=== PATIENT | male | born 1985 | race Asian ===

== ENCOUNTER 2019-11-02 19:41 | Inpatient (IN) | payer OTHER ==
[~2019-11-02] VITALS: Ht 180.3 cm; Wt 109.2 kg
[2019-11-02] MEDS ORDERED: Morphine Sulfate 4mg/ml Inj (IV USE ONLY) IVP ONE ×2 (20:15→22:00)
[2019-11-02] MEDS ORDERED: Ketorolac 30mg Inj IV ONE (20:15)
[2019-11-02] MEDS ORDERED: Omnipaque-300 100ml vial INJ PRN (20:15)
[2019-11-02 20:27] LABS: HEMATOCRIT 49.8 % (42.0-52.0); HEMOGLOBIN 17.2 G/DL (14.2-18.0); MEAN CORPUSCULAR VOLUME 87 FL (80-99); PLATELET COUNT 262 K/UL (150-450); RED BLOOD COUNT 5.71 M/UL (4.70-6.10); RED CELL DISTRIBUTION WIDTH 11.7 % (11.6-14.8); WHITE BLOOD COUNT 15.5 K/UL (4.8-10.8)
[2019-11-02 20:28] LABS: APPEARANCE,URINE SLIGHTLY CLOUDY; BILIRUBIN, URINE NEGATIVE (NEGATIVE); GLUCOSE, URINE (UA) NEGATIVE (NEGATIVE); KETONES,URINE 3+ (NEGATIVE); LEUKOCYTE ESTERASE ,URINE NEGATIVE (NEGATIVE); NITRITE,URINE NEGATIVE (NEGATIVE); PH,URINE 6 (4.5-8.0); PROTEIN,URINE 2+ (NEGATIVE); UROBILINOGEN,URINE 1 MG/DL (0.0-1.0)
--- NOTE | 2019-11-02 20:30 | NUR ---
ED Nurse Note: Recieved pt from home, here with c/o right quadrant abdominal pain since 3 am, intermittently and increasing to level of 8/10 with nausea, no emesis, pt denies fevers, diarrhea or any other complaints, pt gowned, urine sample collected and placed on monitoirng, will resume care as ordered by .
[2019-11-02 20:31] LABS: COLOR,URINE YELLOW
[2019-11-02 20:55] LABS: ANION GAP 10 mmol/L (5-15); BLOOD UREA NITROGEN 17 mg/dL (7-18); CALCIUM 8.4 MG/DL (8.5-10.1); CARBON DIOXIDE 28 MMOL/L (21-32); CHLORIDE 103 MMOL/L (98-107); CREATININE 1.2 MG/DL (0.55-1.30); POTASSIUM 3.3 MMOL/L (3.5-5.1); SODIUM 141 MMOL/L (136-145)
[2019-11-02 21:00] LABS: ALANINE AMINOTRANSFERASE 64 U/L (12-78); ALBUMIN 4.1 G/DL (3.4-5.0); ALBUMIN/GLOBULIN RATIO 1.1 (1.0-2.7); ALKALINE PHOSPHATASE 93 U/L (46-116); ASPARTATE AMINO TRANSFERASE 19 U/L (15-37); BILIRUBIN,TOTAL 0.6 MG/DL (0.2-1.0)
--- NOTE | 2019-11-02 21:05 | Emergency Room Report ---
History of Present Illness General Chief Complaint: Abdominal Pain Source: Patient Present Illness HPI 34-year-old male presents ED for evaluation. Complaining of abdominal pain. Started this morning around 3 AM. Woke him up from sleep. Pain is sharp, 8 out of 10, localized to right lower quadrant. Notes nausea, denies vomiting. Denies fevers or chills. Denies diarrhea. No other aggravating relieving factors. Denies any other associated symptoms Allergies: Coded Allergies: No Known Allergies (Unverified , 11/02/19) Patient History Past Medical History: none Past Surgical History: none Pertinent Family History: none Social History: Denies: smoking, alcohol use, drug use Immunizations: UTD Reviewed Nursing Documentation: PMH: Agreed; PSxH: Agreed Nursing Documentation-PMH Past Medical History: No Stated History Review of Systems All Other Systems: negative except mentioned in HPI Physical Exam Vital Signs Date Time Temp Pulse Resp B/P (MAP) Pulse Ox O2 Delivery O2 Flow Rate FiO2 11/02/19 19:49 98.8 110 16 151/96 (114) 96 Room Air Sp02 EP Interpretation: reviewed, normal General Appearance: no apparent distress, alert, GCS 15, non-toxic Head: normocephalic, atraumatic Eyes: bilateral eye normal inspection, bilateral eye PERRL ENT: hearing grossly normal, normal pharynx, no angioedema, normal voice Neck: full range of motion, supple/symm/no masses Respiratory: chest non-tender, lungs clear, normal breath sounds, speaking full sentences Cardiovascular #1: regular rate, rhythm, no edema Cardiovascular #2: 2+ carotid (R), 2+ carotid (L), 2+ radial (R), 2+ radial (L) , 2+ dorsalis pedis (R), 2+ dorsalis pedis (L) Gastrointestinal: normal bowel sounds, soft, non-distended, no guarding, no rebound, tenderness - RLQ Rectal: deferred Genitourinary: normal inspection, no CVA tenderness Musculoskeletal: back normal, normal range of motion, gait/station normal, non- tender Neurologic: alert, motor strength/tone normal, oriented x3, sensory intact, responsive, speech normal Psychiatric: judgement/insight normal, memory normal, mood/affect normal, no suicidal/homicidal ideation Reflexes: 3+ bicep (R), 3+ bicep (L), 3+ tricep (R), 3+ tricep (L), 3+ knee (R) , 3+ knee (L) Skin: no rash Lymphatic: no adenopathy Medical Decision Making Diagnostic Impression: Primary Impression: Appendicitis with perforation ER Course Hospital Course 34-year-old M presents to ED with RLQ pain Differential diagnoses include: Appendicitis, cholecystitis, small bowel obstruction Clinical course Patient placed on stretcher. monitor tech. After initial history and physical I ordered labs, IV fluids, UA, pain medication and CT scan Labs - leukocytosis noted, Hb/Hct stable. electrolytes ok. CT abdomen and pelvis - appendicits with perforation/abscess Antibiotics given. IVfs given. made NPO. discussed findings with patient Case discussed with Dr. Uribe and he will consult patient. Case discussed with Dr. Snyder and he agreed to accept the patient to his service for further care and support I feel this is a highly complex case requiring extensive working including EKG/ Rhythm strip, Xray/CT/US, Blood/urine lab work, repeat exams while in ED, and administration of strong opiates/narcotics for pain control, admission to hospital or close patient follow up. Diagnosis - appendicitis with perforation Patient admitted to floor in serious condition Labs Test 11/02/19 19:50 11/02/19 20:00 Urine Color Yellow Urine Appearance Slightly cloudy Urine pH 6 (4.5-8.0) Urine Specific [place] 1.020 (1.005-1.035) Urine Protein 2+ (NEGATIVE) Urine Glucose (UA) Negative (NEGATIVE) Urine Ketones 3+ (NEGATIVE) Urine Blood 1+ (NEGATIVE) Urine Nitrite Negative (NEGATIVE) Urine Bilirubin Negative (NEGATIVE) Urine Urobilinogen 1 MG/DL (0.0-1.0) Urine Leukocyte Esterase Negative (NEGATIVE) Urine RBC 2-4 /HPF (0 - 0) Urine WBC 0-2 /HPF (0 - 0) Urine Squamous Epithelial Cells None /LPF (NONE/OCC) Urine Bacteria Few /HPF (NONE) Urine Mucus Many /LPF (NONE/OCC) White Blood Count 15.5 K/UL (4.8-10.8) Red Blood Count 5.71 M/UL (4.70-6.10) Hemoglobin 17.2 G/DL (14.2-18.0) Hematocrit 49.8 % (42.0-52.0) Mean Corpuscular Volume 87 FL (80-99) Mean Corpuscular Hemoglobin 30.1 PG (27.0-31.0) Mean Corpuscular Hemoglobin Concent 34.5 G/DL (32.0-36.0) Red Cell Distribution Width 11.7 % (11.6-14.8) Platelet Count 262 K/UL (150-450) Mean Platelet Volume 7.4 FL (6.5-10.1) Neutrophils (%) (Auto) % (45.0-75.0) Lymphocytes (%) (Auto) % (20.0-45.0) Monocytes (%) (Auto) % (1.0-10.0) Eosinophils (%) (Auto) % (0.0-3.0) Basophils (%) (Auto) % (0.0-2.0) Sodium Level 141 MMOL/L (136-145) Potassium Level 3.3 MMOL/L (3.5-5.1) Chloride Level 103 MMOL/L (98-107) Carbon Dioxide Level 28 MMOL/L (21-32) Anion Gap 10 mmol/L (5-15) Blood Urea Nitrogen 17 mg/dL (7-18) Creatinine 1.2 MG/DL (0.55-1.30) Estimat Glomerular Filtration Rate > 60 mL/min (>60) Glucose Level 107 MG/DL (74-106) Calcium Level 8.4 MG/DL (8.5-10.1) Total Bilirubin 0.6 MG/DL (0.2-1.0) Aspartate Amino Transf (AST/SGOT) 19 U/L (15-37) Alanine Aminotransferase (ALT/SGPT) 64 U/L (12-78) Alkaline Phosphatase 93 U/L (46-116) Total Protein 8.0 G/DL (6.4-8.2) Albumin 4.1 G/DL (3.4-5.0) Globulin 3.9 g/dL Albumin/Globulin Ratio 1.1 (1.0-2.7) Lipase 82 U/L (73-393) CT/MRI/US Diagnostic Results CT/MRI/US Diagnostic Results : Imaging Test Ordered: CT A/P Impression FINDINGS: Lung bases: Unremarkable. No mass. No consolidation. ABDOMEN: Liver: Unremarkable. No mass. Gallbladder and bile ducts: Unremarkable. No calcified stones. No ductal dilation. Pancreas: Unremarkable. No mass. No ductal dilation. Spleen: Unremarkable. No splenomegaly. Adrenals: Unremarkable. No mass. Kidneys and ureters: Unremarkable. No solid mass. No hydronephrosis. Stomach and bowel: Colonic diverticulosis without diverticulitis. PELVIS: Appendix: Findings of acute appendicitis. The appendix appears to have perforated with a fluid collection measuring 2.6 x 2.0 x 2.5 cm. This collection partially encircles the appendiceal tip. There is no free air. Surrounding fat stranding. Bladder: Unremarkable. No mass. Reproductive: Unremarkable as visualized. ABDOMEN and PELVIS: Intraperitoneal space: Trace free fluid in the right lower quadrant and pelvis. Bones/joints: No acute fracture. No dislocation. Soft tissues: Unremarkable. Vasculature: Unremarkable. No abdominal aortic aneurysm. Lymph nodes: Unremarkable. No enlarged lymph nodes. Last Vital Signs Date Time Temp Pulse Resp B/P (MAP) Pulse Ox O2 Delivery O2 Flow Rate FiO2 11/02/19 19:49 98.8 110 16 151/96 (114) 96 Room Air Status: improved Disposition: ADMITTED INPATIENT Condition: Serious Referrals: NOT CHOSEN IPA/,REFERRING (PCP) Oumar Ghosh MD Nov 02, 2019 21:05
[2019-11-02 21:30] VITALS: BP 144/86
--- NOTE | 2019-11-02 21:30 | Diagnostic Imaging Report ---
EXAM: CT Abdomen and Pelvis With Intravenous Contrast CLINICAL HISTORY: ABD PAIN TECHNIQUE: Axial computed tomography images of the abdomen and pelvis with intravenous contrast. CTDI is 26.9 mGy and DLP is 1706.4 mGy-cm. One or more of the following dose reduction techniques were used: automated exposure control, adjustment of the mA and/or kV according to patient size, use of iterative reconstruction technique. COMPARISON: No relevant prior studies available. FINDINGS: Lung bases: Unremarkable. No mass. No consolidation. ABDOMEN: Liver: Unremarkable. No mass. Gallbladder and bile ducts: Unremarkable. No calcified stones. No ductal dilation. Pancreas: Unremarkable. No mass. No ductal dilation. Spleen: Unremarkable. No splenomegaly. Adrenals: Unremarkable. No mass. Kidneys and ureters: Unremarkable. No solid mass. No hydronephrosis. Stomach and bowel: Colonic diverticulosis without diverticulitis. PELVIS: Appendix: Findings of acute appendicitis. The appendix appears to have perforated with a fluid collection measuring 2.6 x 2.0 x 2.5 cm. This collection partially encircles the appendiceal tip. There is no free air. Surrounding fat stranding. Bladder: Unremarkable. No mass. Reproductive: Unremarkable as visualized. ABDOMEN and PELVIS: Intraperitoneal space: Trace free fluid in the right lower quadrant and pelvis. Bones/joints: No acute fracture. No dislocation. Soft tissues: Unremarkable. Vasculature: Unremarkable. No abdominal aortic aneurysm. Lymph nodes: Unremarkable. No enlarged lymph nodes. IMPRESSION: 1. Acute appendicitis with perforation and an abscess measuring 2.6 cm partially encircling the appendiceal tip. 2. Colonic diverticulosis without diverticulitis. <MYCVCSECTION> Communications: 11/02/19 21:39 Call Doctor Regarding Appendicitis, called Davina STARKEY on 11/02 21:39 (-08:00)
[2019-11-02] MEDS ORDERED: Piperacillin/Tazobactam 3.375 GM in NS 110 ML IVPB ONE (21:45)
--- NOTE | 2019-11-02 21:45 | NUR ---
ED Nurse Note: Meds given slightly effective, pt reports pain level at 6/10, states meds effective for short time only, MD informed, pt completed imaging, on monitoring, IV site patent, will continue to monitor while waiting for disposition information and results.
--- NOTE | 2019-11-02 23:00 | NUR ---
ED Nurse Note: Pt medicated second time for pain, states meds not reslly effective, pt resting quietly in bed, on monitoring, IV site patent, pt to be admitted to hospital for positive appy, possible surgery tonight, pt mother at bedside, explained all info to both parties, will continue to closely monitor and prepare for disposition.
[2019-11-02 23:15] VITALS: BP 149/71
--- NOTE | 2019-11-02 23:35 | NUR ---
ED Nurse Note: Pt being admitted to hospital, possible surgery in am, all forms completed and family is aware, pt in bed awake, alert and oriented x 4, IV site patent, pt re-medicated for pain with dilaudid, immediately states pain med is more effective, pt smiling and ambulating to bathroom, belongings list completed, report called to floor nurse, nad noted during pt transport to unit for admission.
[2019-11-02] MEDS: HYDROmorphone 1mg/ml Carpuject IVP PRN (23:38)
[2019-11-02 23:40] VITALS: BP 151/99
--- NOTE | 2019-11-02 23:40 | NUR ---
NURSE NOTES: Patient arrived the unit. Patient is a/ox 4, verbalize, ambulate, and able to known his needs. IV site on Rt. AC 22G is intact and patent. Belonging checked and signed with patient. Head to toe assessment done. Skin is intact and clean. VS: BP 151/99, HR 84, RR 18, O2 97 on Room Air, Temp 98.4. Friend is at bedside. Bed is on alarm, locked, low position. Call light is within reach. Will continue to monitor.
--- NOTE | 2019-11-03 01:00 | NUR ---
NURSE NOTES: Called to Dr. Snyder and left message regarding admission order.
--- NOTE | 2019-11-03 01:40 | NUR ---
NURSE NOTES: Called [address] Snyder and left message regarding admission order.
[2019-11-03 04:00] VITALS: BP 141/91
[2019-11-03] MEDS: HYDROmorphone 1mg/ml Carpuject IVP PRN ×5 (04:01→20:55)
[2019-11-03] MEDS: Piperacillin/Tazobactam 3.375 GM in NS 110 ML IVPB SCH ×3 (05:31→22:20)
[2019-11-03 05:45] LABS: BASOPHILS % (AUTO) 0.5 % (0.0-2.0); EOSINOPHILS % (AUTO) 0.8 % (0.0-3.0); HEMATOCRIT 43.5 % (42.0-52.0); HEMOGLOBIN 15.2 G/DL (14.2-18.0); LYMPHOCYTES % (AUTO) 14.9 % (20.0-45.0); MEAN CORPUSCULAR VOLUME 88 FL (80-99); MONOCYTES % (AUTO) 7.7 % (1.0-10.0); PLATELET COUNT 238 K/UL (150-450); RED BLOOD COUNT 4.95 M/UL (4.70-6.10); RED CELL DISTRIBUTION WIDTH 11.9 % (11.6-14.8); WHITE BLOOD COUNT 10.5 K/UL (4.8-10.8)
[2019-11-03 06:01] LABS: ALANINE AMINOTRANSFERASE 51 U/L (12-78); ALBUMIN 3.4 G/DL (3.4-5.0); ALKALINE PHOSPHATASE 75 U/L (46-116); ANION GAP 6 mmol/L (5-15); ASPARTATE AMINO TRANSFERASE 17 U/L (15-37); BILIRUBIN,TOTAL 0.6 MG/DL (0.2-1.0); BLOOD UREA NITROGEN 15 mg/dL (7-18); CALCIUM 7.9 MG/DL (8.5-10.1); CARBON DIOXIDE 29 MMOL/L (21-32); CHLORIDE 107 MMOL/L (98-107); CREATININE 1.1 MG/DL (0.55-1.30); POTASSIUM 3.8 MMOL/L (3.5-5.1); SODIUM 142 MMOL/L (136-145)
--- NOTE | 2019-11-03 07:34 | NUR ---
HAND-OFF: Report given to Jaymie ZEPEDA. Patient stable condition
--- NOTE | 2019-11-03 07:40 | NUR ---
NURSE NOTES: Patient lying in bed awake. Complain of pain 7/10 on abdomen and will adminster Addendum: 11/03/19 at 1137 by ARGELIA WEIR RN NURSE NOTES: Complain of pain 7/10 on abdomen and will administer pain medication. Skin intact and dry. IV dressing intact and dry. IV fluid on going as ordered. Bed lowest position. Call light within reach. Will continue to monitor.
[2019-11-03 08:00] VITALS: BP 148/91
--- NOTE | 2019-11-03 09:45 | History and Physical Report ---
DATE OF ADMISSION: 11/02/2019 CHIEF COMPLAINT: Abdominal pain. HISTORY OF PRESENT ILLNESS: The patient is a 34-year-old male with past history of migraines, who presented with complaints of abdominal pain. According to the patient, he was well until the morning of admission when he woke at 3 a.m. with severe right-sided abdominal pain. He waited throughout the day, but the pain persisted and he presented to the emergency room. On evaluation there, his white count was 15,000. He was afebrile. CT scan showed a possible perforated appendicitis. The patient has now been started on IV fluids and antibiotic therapy. He is admitted for surgical evaluation. PAST MEDICAL HISTORY: None. PAST SURGICAL HISTORY: None. CURRENT MEDICATIONS: Include Excedrin only as needed. FAMILY HISTORY: Noncontributory. SOCIAL HISTORY: Negative for tobacco, ethanol, or drugs. PHYSICAL EXAMINATION: VITAL SIGNS: Temperature 97.9, pulse 81, respirations 18, and blood pressure 141/__. GENERAL: The patient is developed, in no apparent distress. HEART: Regular rate and rhythm. LUNGS: Clear. ABDOMEN: Soft. Tender in the right lower quadrant. EXTREMITIES: No clubbing, cyanosis, or edema. LABORATORY DATA: Sodium 141, potassium 3.3, chloride 103, bicarb 28, BUN 17, and creatinine 1.2. White count was 15,000, hemoglobin 17, and platelet count 262,000. UA was clear. ASSESSMENT: This is a pleasant 34-year-old male with no past medical history, presented with complaints of right-sided abdominal pain secondary to appendicitis. PLAN: 1. IV antibiotics. 2. NPO. 3. Surgical consultation has been obtained. The patient is medically stable for surgery. His perioperative risk is average for his age and sex. We will proceed with surgery if needed. Alfredo Snyder M.D. DR: JOSIAH JOB#: [id number] CC:
--- NOTE | 2019-11-03 11:45 | Consultation ---
History of Present Illness General Date patient seen: Nov 03, 2019 Reason for Hospitalization: Abdominal Pain Present Illness HPI 34 year old male presented to ED at [facility] [place] c/o abdominal pain. states pain began at 3am and woke him up. has not improved so came to ED for evaluation. pain cramping RLQ pain 8/10 at max. no n/v/f/c. in ED leukocytosis and CT with perforated appy with abscess. admitted for care and management. surgery called to evaluate. Allergies: Coded Allergies: No Known Allergies (Unverified , 11/02/19) Patient History History Provided By: Patient, Medical Record, PMD Healthcare decision maker Resuscitation status Full Code Advanced Directive on File Past Medical/Surgical History Past Medical/Surgical History: (1) Appendicitis with perforation Review of Systems Review of Symptoms General ROS: no weight loss or fever Psychological ROS: no depression or mood changes, no memory loss Ophthalmic ROS: no visual changes or eye irritation ENT ROS: no nasal congestion, hearing loss, dizziness Allergy and Immunology ROS: no allergic symptoms or urticaria Hematological and Lymphatic ROS: no swollen glands, unusual bleeding or bruising Endocrine ROS: no polyuria, polydipsia, weight changes, temperature intolerance Respiratory ROS: no cough, shortness of breath, or wheezing Cardiovascular ROS: no chest pain or dyspnea on exertion Gastrointestinal ROS: abdominal pain, bright red blood in stool. Musculoskeletal ROS: no myalgias or arthralgias Neurological ROS: no TIA or stroke symptoms Dermatological ROS: no new or changing skin lesions, rashes or pruritis Physical Exam Physical Exam General appearance: alert, cooperative, no distress, appears stated age Head: Normocephalic, without obvious abnormality, atraumatic Eyes: conjunctivae/corneas clear. PERRL, EOM's intact. Fundi benign Throat: Lips, mucosa, and tongue normal. Teeth and gums normal Neck: supple, symmetrical, trachea midline, no adenopathy, thyroid: not enlarged, symmetric, no tenderness/mass/nodules, no carotid bruit and no JVD Lungs: clear to auscultation bilaterally Heart: regular rate and rhythm, S1, S2 normal, no murmur, click, rub or gallop Abdomen: soft, RLQ tender but no acute abdomen or peritonitis . Bowel sounds normal. No masses, no organomegaly Extremities: extremities normal, atraumatic, no cyanosis or edema Pulses: 2+ and symmetric Skin: Skin color, texture, turgor normal. No rashes or lesions Neurologic: Grossly normal Last 24 Hour Vital Signs Date Time Temp Pulse Resp B/P (MAP) Pulse Ox O2 Delivery O2 Flow Rate FiO2 11/03/19 09:00 Room Air 11/03/19 08:00 98.2 81 20 148/91 (110) 97 11/03/19 04:00 97.9 81 18 141/91 (108) 94 11/03/19 01:15 Room Air 11/02/19 23:40 98.4 84 18 151/99 (116) 97 11/02/19 23:35 98.8 76 20 144/86 98 Room Air 11/02/19 23:15 98.8 89 20 149/71 99 Room Air 11/02/19 21:30 98.8 76 20 144/86 98 Room Air 11/02/19 20:53 98.8 11/02/19 20:53 98.8 11/02/19 20:53 98.8 11/02/19 20:53 98.8 11/02/19 20:15 110 16 Room Air 11/02/19 19:49 98.8 110 16 151/96 (114) 96 Room Air Intake and Output 11/02/19 11/03/19 19:00 07:00 Intake Total 527.5 ml Balance 527.5 ml Intake IV Total 527.5 ml Laboratory Tests Test 11/02/19 19:50 11/02/19 20:00 11/03/19 04:50 Urine Color Yellow Urine Appearance Slightly cloudy Urine pH 6 (4.5-8.0) Urine Specific [place] 1.020 (1.005-1.035) Urine Protein 2+ (NEGATIVE) H Urine Glucose (UA) Negative (NEGATIVE) Urine Ketones 3+ (NEGATIVE) H Urine Blood 1+ (NEGATIVE) H Urine Nitrite Negative (NEGATIVE) Urine Bilirubin Negative (NEGATIVE) Urine Urobilinogen 1 MG/DL (0.0-1.0) H Urine Leukocyte Esterase Negative (NEGATIVE) Urine RBC 2-4 /HPF (0 - 0) H Urine WBC 0-2 /HPF (0 - 0) Urine Squamous Epithelial Cells None /LPF (NONE/OCC) Urine Bacteria Few /HPF (NONE) Urine Mucus Many /LPF (NONE/OCC) H White Blood Count 15.5 K/UL (4.8-10.8) H 10.5 K/UL (4.8-10.8) Red Blood Count 5.71 M/UL (4.70-6.10) 4.95 M/UL (4.70-6.10) Hemoglobin 17.2 G/DL (14.2-18.0) 15.2 G/DL (14.2-18.0) Hematocrit 49.8 % (42.0-52.0) 43.5 % (42.0-52.0) Mean Corpuscular Volume 87 FL (80-99) 88 FL (80-99) Mean Corpuscular Hemoglobin 30.1 PG (27.0-31.0) 30.8 PG (27.0-31.0) Mean Corpuscular Hemoglobin Concent 34.5 G/DL (32.0-36.0) 35.0 G/DL (32.0-36.0) Red Cell Distribution Width 11.7 % (11.6-14.8) 11.9 % (11.6-14.8) Platelet Count 262 K/UL (150-450) 238 K/UL (150-450) Mean Platelet Volume 7.4 FL (6.5-10.1) 7.6 FL (6.5-10.1) Neutrophils (%) (Auto) % (45.0-75.0) 76.0 % (45.0-75.0) H Lymphocytes (%) (Auto) % (20.0-45.0) 14.9 % (20.0-45.0) L Monocytes (%) (Auto) % (1.0-10.0) 7.7 % (1.0-10.0) Eosinophils (%) (Auto) % (0.0-3.0) 0.8 % (0.0-3.0) Basophils (%) (Auto) % (0.0-2.0) 0.5 % (0.0-2.0) Sodium Level 141 MMOL/L (136-145) 142 MMOL/L (136-145) Potassium Level 3.3 MMOL/L (3.5-5.1) L 3.8 MMOL/L (3.5-5.1) Chloride Level 103 MMOL/L (98-107) 107 MMOL/L (98-107) Carbon Dioxide Level 28 MMOL/L (21-32) 29 MMOL/L (21-32) Anion Gap 10 mmol/L (5-15) 6 mmol/L (5-15) Blood Urea Nitrogen 17 mg/dL (7-18) 15 mg/dL (7-18) Creatinine 1.2 MG/DL (0.55-1.30) 1.1 MG/DL (0.55-1.30) Estimat Glomerular Filtration Rate > 60 mL/min (>60) > 60 mL/min (>60) Glucose Level 107 MG/DL (74-106) H 117 MG/DL (74-106) H Calcium Level 8.4 MG/DL (8.5-10.1) L 7.9 MG/DL (8.5-10.1) L Total Bilirubin 0.6 MG/DL (0.2-1.0) 0.6 MG/DL (0.2-1.0) Aspartate Amino Transf (AST/SGOT) 19 U/L (15-37) 17 U/L (15-37) Alanine Aminotransferase (ALT/SGPT) 64 U/L (12-78) 51 U/L (12-78) Alkaline Phosphatase 93 U/L (46-116) 75 U/L (46-116) Total Protein 8.0 G/DL (6.4-8.2) 6.8 G/DL (6.4-8.2) Albumin 4.1 G/DL (3.4-5.0) 3.4 G/DL (3.4-5.0) Globulin 3.9 g/dL 3.4 g/dL Albumin/Globulin Ratio 1.1 (1.0-2.7) 1.0 (1.0-2.7) Lipase 82 U/L (73-393) Height (Feet): 5 Height (Inches): 11.00 Weight (Pounds): 230 Medications Current Medications Medications (Trade) Dose Ordered Sig/Sarah Route PRN Reason Start Time Stop Time Status Last Admin Dose Admin Acetaminophen (Tylenol) 650 mg Q4H PRN ORAL Mild Pain/Temp > 100.5 11/02/19 22:15 12/02/19 22:14 Dextrose/ Electrolytes 1,000 ml @ 125 mls/hr Q8H IV 11/02/19 22:15 12/02/19 22:14 11/03/19 02:42 Hydromorphone HCl (Dilaudid) 1 mg Q4H PRN IVP For Pain 11/02/19 22:15 11/09/19 22:14 11/03/19 08:40 Iohexol (OMNIPAQUE-300 100ml) 100 ml NOW PRN INJ Radiology Procedure 11/02/19 20:15 11/04/19 20:02 Ondansetron HCl (Zofran) 4 mg Q6H PRN IVP Nausea & Vomiting 11/02/19 22:15 12/02/19 22:14 11/02/19 23:38 Piperacillin Sod/ Tazobactam Sod 3.375 gm/Sodium Chloride 110 ml @ 27.5 mls/hr EVERY 8 HOURS IVPB 11/03/19 06:00 11/10/19 05:59 11/03/19 05:31 Assessment/Plan Problem List: (1) Appendicitis with perforation Assessment & Plan: 34M acute appendicitis with perforation and abscess afebrile, HD stable labs improved on IV abx CT with 1. Acute appendicitis with perforation and an abscess measuring 2.6 cm partially encircling the appendiceal tip. 2. Colonic diverticulosis without diverticulitis. npo iv fluids iv abx will discuss with IR for potential drain placement serial abdominal exams. if worsens or does not improve with non operative management will require surgery otherwise discussed with patient and medical team will proceed with non operative management thank you will follow with recs ICD Codes: K35.32 - Acute appendicitis with perforation and localized peritonitis, without abscess SNOMED: [id number] Maxwell Uribe Nov 03, 2019 11:45
[2019-11-03 12:00] VITALS: BP 152/93
[2019-11-03 16:00] VITALS: BP 148/94
--- NOTE | 2019-11-03 17:16 | NUR ---
CASE MANAGEMENT: REVIEW 34 YEAR OLD MALE CC: RLQ ADB PAIN 05/19 SI: APPENDICITIS w/ABSCESS . APPENDICITIS w/ PERFORATION T 98.8 HR 110 RR 16 BP 151/96 SAT 96% ROOM AIR WBC 15.5 IS: NS IVF BOLUS X1 MORPHINE 4 MG IV X1 TORADOL 30MG IV X1 ZOFRAN IV X1 ZOSYN IV X1 NPO POSSIBLE DRAIN PLACEMENT PATIENT ADMITTED TO MED/SURG UNIT 11/02/2019 DCP: PATIENT IS FROM HOME
--- NOTE | 2019-11-03 19:30 | NUR ---
HAND-OFF: Report given to Peyton ZEPEDA. Patient in stable condition.
[2019-11-03 20:00] VITALS: BP 146/93
--- NOTE | 2019-11-03 20:24 | NUR ---
NURSE NOTES: Received patient in bed, awake, alert, oriented x4, ambulatory with steady gate, able to make his needs known, IV site is clean dry and intact, patient is NPO x for ice chips and medications. Call light is within reach, bed is lowered, locked and alarm is on. Will continue to monitor for comfort and safety.
[2019-11-04] VITALS: BP 140/90
[2019-11-04] MEDS: HYDROmorphone 1mg/ml Carpuject IVP PRN ×4 (00:56→14:36)
[2019-11-04 04:00] VITALS: BP 149/89
[2019-11-04] MEDS: Piperacillin/Tazobactam 3.375 GM in NS 110 ML IVPB SCH ×3 (04:56→22:17)
[2019-11-04 05:50] LABS: BASOPHILS % (AUTO) 0.5 % (0.0-2.0); EOSINOPHILS % (AUTO) 1.5 % (0.0-3.0); HEMATOCRIT 41.6 % (42.0-52.0); HEMOGLOBIN 14.4 G/DL (14.2-18.0); LYMPHOCYTES % (AUTO) 18.5 % (20.0-45.0); MEAN CORPUSCULAR VOLUME 88 FL (80-99); MONOCYTES % (AUTO) 7.2 % (1.0-10.0); NEUTROPHILS % (AUTO) 72.4 % (45.0-75.0); PLATELET COUNT 219 K/UL (150-450); RED BLOOD COUNT 4.73 M/UL (4.70-6.10); RED CELL DISTRIBUTION WIDTH 11.9 % (11.6-14.8)
[2019-11-04 06:06] LABS: ALANINE AMINOTRANSFERASE 41 U/L (12-78); ALBUMIN 3.1 G/DL (3.4-5.0); ALBUMIN/GLOBULIN RATIO 0.8 (1.0-2.7); ALKALINE PHOSPHATASE 65 U/L (46-116); ANION GAP 6 mmol/L (5-15); ASPARTATE AMINO TRANSFERASE 12 U/L (15-37); BILIRUBIN,TOTAL 0.7 MG/DL (0.2-1.0); BLOOD UREA NITROGEN 12 mg/dL (7-18); CARBON DIOXIDE 30 MMOL/L (21-32); CHLORIDE 106 MMOL/L (98-107); CREATININE 0.9 MG/DL (0.55-1.30); POTASSIUM 3.7 MMOL/L (3.5-5.1); SODIUM 142 MMOL/L (136-145)
[2019-11-04 08:00] VITALS: BP 128/86
--- NOTE | 2019-11-04 08:00 | NUR ---
NURSE NOTES: Received report from Peyton ZEPEDA, pt a/a/o x4 laying in bed with no signs of distress or other issues at this time. However pt still complaining of pain 04/18. RN will medicate as indicated by . pt able to ambulate around the room with steady gait. carlos light within reach, bed in lowest position, side rales up x2. I will f/u as needed.
--- NOTE | 2019-11-04 11:55 | Surgery Progress Note ---
Surgery Progress Note Subjective Symptoms: improved, voiding well, passing flatus Objective Last 24 Hour Vital Signs Date Time Temp Pulse Resp B/P (MAP) Pulse Ox O2 Delivery O2 Flow Rate FiO2 11/04/19 10:20 98.0 11/04/19 08:00 98.0 78 18 128/86 (100) 96 11/04/19 04:00 98.6 76 20 149/89 (109) 11/04/19 00:00 98.0 67 18 140/90 (107) 98 11/03/19 21:39 Room Air 11/03/19 20:00 97.0 72 20 146/93 (110) 97 11/03/19 19:05 97.0 11/03/19 16:00 97.0 96 20 148/94 (112) 98 11/03/19 12:00 98.4 90 18 152/93 (112) 95 I&O Intake and Output 11/03/19 11/04/19 19:00 07:00 Intake Total 127.5 ml Balance 127.5 ml Intake Oral 100 ml IV Total 27.5 ml # Voids 2 Cardiovascular: RSR Respiratory: clear Abdomen: soft, tenderness - decreased , present bowel sounds, non-distended Extremities: no edema, no tenderness, no cyanosis Laboratory Tests Test 11/04/19 04:40 White Blood Count 10.0 K/UL (4.8-10.8) Red Blood Count 4.73 M/UL (4.70-6.10) Hemoglobin 14.4 G/DL (14.2-18.0) Hematocrit 41.6 % (42.0-52.0) L Mean Corpuscular Volume 88 FL (80-99) Mean Corpuscular Hemoglobin 30.4 PG (27.0-31.0) Mean Corpuscular Hemoglobin Concent 34.5 G/DL (32.0-36.0) Red Cell Distribution Width 11.9 % (11.6-14.8) Platelet Count 219 K/UL (150-450) Mean Platelet Volume 7.2 FL (6.5-10.1) Neutrophils (%) (Auto) 72.4 % (45.0-75.0) Lymphocytes (%) (Auto) 18.5 % (20.0-45.0) L Monocytes (%) (Auto) 7.2 % (1.0-10.0) Eosinophils (%) (Auto) 1.5 % (0.0-3.0) Basophils (%) (Auto) 0.5 % (0.0-2.0) Erythrocyte Sedimentation Rate 23 MM/HR (0-15) H Sodium Level 142 MMOL/L (136-145) Potassium Level 3.7 MMOL/L (3.5-5.1) Chloride Level 106 MMOL/L (98-107) Carbon Dioxide Level 30 MMOL/L (21-32) Anion Gap 6 mmol/L (5-15) Blood Urea Nitrogen 12 mg/dL (7-18) Creatinine 0.9 MG/DL (0.55-1.30) Estimat Glomerular Filtration Rate > 60 mL/min (>60) Glucose Level 105 MG/DL (74-106) Calcium Level 8.0 MG/DL (8.5-10.1) L Total Bilirubin 0.7 MG/DL (0.2-1.0) Aspartate Amino Transf (AST/SGOT) 12 U/L (15-37) L Alanine Aminotransferase (ALT/SGPT) 41 U/L (12-78) Alkaline Phosphatase 65 U/L (46-116) C-Reactive Protein, Quantitative 21.8 mg/dL (0.00-0.90) H Total Protein 6.8 G/DL (6.4-8.2) Albumin 3.1 G/DL (3.4-5.0) L Globulin 3.7 g/dL Albumin/Globulin Ratio 0.8 (1.0-2.7) L Plan Problems: (1) Appendicitis with perforation Assessment & Plan: 34M acute appendicitis with perforation and abscess afebrile, HD stable labs improved on IV abx CT with 1. Acute appendicitis with perforation and an abscess measuring 2.6 cm partially encircling the appendiceal tip. 2. Colonic diverticulosis without diverticulitis. npo iv fluids iv abx will discuss with IR for potential drain placement serial abdominal exams. if worsens or does not improve with non operative management will require surgery otherwise discussed with patient and medical team will proceed with non operative management doing okay and improving will cont to monitor thank you will follow with Maxwell Keys Nov 04, 2019 11:55
[2019-11-04 12:00] VITALS: BP 144/100
[2019-11-04] MEDS ORDERED: Tubing IV Secondary IV ONE (13:19)
--- NOTE | 2019-11-04 14:32 | General Progress Note ---
Assessment/Plan Problem List: (1) Appendicitis with perforation ICD Codes: K35.32 - Acute appendicitis with perforation and localized peritonitis, without abscess SNOMED: 91042189 Status: stable Assessment/Plan: npo ivf pain rx abx IR drain tomorrow Subjective ROS Limited/Unobtainable: No Constitutional: Reports: malaise, weakness HEENT: Reports: no symptoms Cardiovascular: Reports: no symptoms Respiratory: Reports: no symptoms Gastrointestinal/Abdominal: Reports: abdominal pain Genitourinary: Reports: no symptoms Neurologic/Psychiatric: Reports: no symptoms Endocrine: Reports: no symptoms Hematologic/Lymphatic: Reports: no symptoms Allergies: Coded Allergies: No Known Allergies (Unverified , 11/02/19) All Systems: reviewed and negative except above Subjective feels better today. decreased pain,. surgery noted, on iv abx and ivf. Objective Last 24 Hour Vital Signs Date Time Temp Pulse Resp B/P (MAP) Pulse Ox O2 Delivery O2 Flow Rate FiO2 11/04/19 12:00 98.1 75 20 144/100 (115) 96 11/04/19 10:20 98.0 11/04/19 09:00 Room Air 11/04/19 08:00 98.0 78 18 128/86 (100) 96 11/04/19 04:00 98.6 76 20 149/89 (109) 11/04/19 00:00 98.0 67 18 140/90 (107) 98 11/03/19 21:39 Room Air 11/03/19 20:00 97.0 72 20 146/93 (110) 97 11/03/19 19:05 97.0 11/03/19 16:00 97.0 96 20 148/94 (112) 98 Intake and Output 11/03/19 11/04/19 19:00 07:00 Intake Total 127.5 ml Balance 127.5 ml Intake Oral 100 ml IV Total 27.5 ml # Voids 2 Laboratory Tests 11/04/19 04:40: White Blood Count 10.0, Red Blood Count 4.73, Hemoglobin 14.4, Hematocrit 41.6L , Mean Corpuscular Volume 88, Mean Corpuscular Hemoglobin 30.4, Mean Corpuscular Hemoglobin Concent 34.5, Red Cell Distribution Width 11.9, Platelet Count 219, Mean Platelet Volume 7.2, Neutrophils (%) (Auto) 72.4, Lymphocytes (% ) (Auto) 18.5L, Monocytes (%) (Auto) 7.2, Eosinophils (%) (Auto) 1.5, Basophils (%) (Auto) 0.5, Erythrocyte Sedimentation Rate 23H, Sodium Level 142, Potassium Level 3.7, Chloride Level 106, Carbon Dioxide Level 30, Anion Gap 6, Blood Urea Nitrogen 12, Creatinine 0.9, Estimat Glomerular Filtration Rate > 60, Glucose Level 105, Calcium Level 8.0L, Total Bilirubin 0.7, Aspartate Amino Transf (AST/ SGOT) 12L, Alanine Aminotransferase (ALT/SGPT) 41, Alkaline Phosphatase 65, C- Reactive Protein, Quantitative 21.8H, Total Protein 6.8, Albumin 3.1L, Globulin 3.7, Albumin/Globulin Ratio 0.8L Height (Feet): 5 Height (Inches): 11.00 Weight (Pounds): 230 General Appearance: WD/WN, alert Neck: supple Cardiovascular: normal rate Respiratory/Chest: chest wall non-tender, lungs clear, normal breath sounds, no respiratory distress Abdomen: normal bowel sounds, non tender, soft Edema: no edema noted Arm (L), no edema noted Arm (R), no edema noted Leg (L), no edema noted Leg (R), no edema noted Pedal (L), no edema noted Pedal (R), no edema noted Generalized Alfredo Snyder MD Nov 04, 2019 14:32
[2019-11-04 16:00] VITALS: BP 145/88
--- NOTE | 2019-11-04 16:00 | Consultation ---
DATE OF CONSULTATION: 11/04/2019 INFECTIOUS DISEASE CONSULTATION This consult is for coverage of Dr. Figueroa. CONSULTING PHYSICIAN: Bola Shi M.D. PRIMARY ATTENDING PHYSICIAN: Alfredo Snyder M.D. REASON FOR CONSULTATION: Perforated appendicitis, intra-abdominal abscess. HISTORY OF PRESENT ILLNESS: This is a 34-year-old male, admitted on night of 11/02/2019, complaining of sudden onset of abdominal pain in right lower quadrant, it was 8/10. In hospital, the patient was found to have leukocytosis of 15.5. No fever. CT scan of the abdomen and pelvis showed perforated appendicitis and intra-abdominal abscess. PAST MEDICAL HISTORY: Insignificant. ALLERGIES: No known drug allergies. MEDICATIONS: Getting Zosyn, Tylenol, hydromorphone, Zofran. SOCIAL HISTORY: No history of alcohol, drug abuse, or smoking. 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 REVIEW OF SYSTEMS: No fever. No chills. No coughing. No shortness of breath. No nausea. No vomiting. Pain is better today. No problem passing urine. PHYSICAL EXAMINATION: VITAL SIGNS: Temperature 98.1, pulse 75, blood pressure 144/100. GENERAL APPEARANCE: No acute distress. Well developed, obese. HEAD AND NECK: Licking conjunctivae. No oral lesion. HEART: Normal rate. LUNGS: Clear. ABDOMEN: Soft. Mildly tender in right lower quadrant. EXTREMITIES: Has no edema. LABORATORY AND DIAGNOSTIC DATA: WBC today is 10,000, hemoglobin 14.4, hematocrit 41.6, platelets is 219,000. Sodium 142, potassium 3.7, chloride 106, bicarb 13, BUN 12, creatinine 0.9, glucose 109. CT scan of the abdomen and pelvis showed acute appendicitis with perforation with abscess measuring 2.6 cm, partially encircling the appendiceal tip; colonic diverticulosis without diverticulitis. IMPRESSION: Acute perforated appendicitis, mid intra-abdominal abscess, has diverticulosis of colon without diverticulitis. RECOMMENDATIONS: The patient is seen by surgeon. Plan by surgeon. We will continue IV Zosyn. At the end of my exam, I thank Dr. Snyder for involving me in the care of this patient. Bola Shi M.D. DR: HAO JOB#: [id number] CC: ERIC
[2019-11-04] MEDS ORDERED: Ketorolac 30mg Inj IV PRN (16:30)
--- NOTE | 2019-11-04 19:27 | NUR ---
HAND-OFF: Report given to Rina ZEPEDA, pt in stable condition.
[2019-11-04 20:00] VITALS: BP 150/98
--- NOTE | 2019-11-04 20:21 | NUR ---
NURSE NOTES: RECIEVED PT. AWAKE AND ALERT W/ VISITOR @BEDSIDE VISITING C/O SLIGHT ABDOMINAL PAIN.V/S TAKEN AND RECORDED.AFEBRILE.WILL CONTINUE TO FOLLOW UP.
[2019-11-05] VITALS: BP 122/76
[2019-11-05 04:00] VITALS: BP 128/88
[2019-11-05] MEDS: Piperacillin/Tazobactam 3.375 GM in NS 110 ML IVPB SCH ×3 (06:17→22:00)
[2019-11-05] MEDS: HYDROmorphone 1mg/ml Carpuject IVP PRN ×3 (06:23→20:10)
[2019-11-05 06:29] LABS: BASOPHILS % (AUTO) 0.7 % (0.0-2.0); EOSINOPHILS % (AUTO) 2.3 % (0.0-3.0); HEMATOCRIT 40.2 % (42.0-52.0); HEMOGLOBIN 14.2 G/DL (14.2-18.0); LYMPHOCYTES % (AUTO) 22.6 % (20.0-45.0); MEAN CORPUSCULAR VOLUME 87 FL (80-99); MONOCYTES % (AUTO) 7.7 % (1.0-10.0); NEUTROPHILS % (AUTO) 66.7 % (45.0-75.0); PLATELET COUNT 250 K/UL (150-450); RED BLOOD COUNT 4.64 M/UL (4.70-6.10); RED CELL DISTRIBUTION WIDTH 11.4 % (11.6-14.8); WHITE BLOOD COUNT 8.2 K/UL (4.8-10.8)
--- NOTE | 2019-11-05 06:38 | NUR ---
NURSE NOTES: PT. SLEPT FAIRLY DURING THE SHIFT .V/S STABLE C/O ABDOMINAL PAIN 03/19 MEDICATED ORDERED.NEEDS ATTENDED CALL LIGHT WITHIN REACH @ ALL TIMES.WILL CONTINUE WITH PLAN OF CARE.
[2019-11-05 07:21] LABS: ALANINE AMINOTRANSFERASE 30 U/L (12-78); ALBUMIN 2.9 G/DL (3.4-5.0); ALBUMIN/GLOBULIN RATIO 0.7 (1.0-2.7); ALKALINE PHOSPHATASE 71 U/L (46-116); ANION GAP 7 mmol/L (5-15); ASPARTATE AMINO TRANSFERASE 10 U/L (15-37); BILIRUBIN,TOTAL 0.7 MG/DL (0.2-1.0); BLOOD UREA NITROGEN 13 mg/dL (7-18); CARBON DIOXIDE 27 MMOL/L (21-32); CHLORIDE 108 MMOL/L (98-107); CREATININE 0.8 MG/DL (0.55-1.30); POTASSIUM 3.5 MMOL/L (3.5-5.1); SODIUM 142 MMOL/L (136-145)
--- NOTE | 2019-11-05 07:50 | NUR ---
HAND-OFF: Report given to ANTONIO ZEPEDA.
--- NOTE | 2019-11-05 07:59 | General Progress Note ---
Assessment/Plan Problem List: (1) Appendicitis with perforation ICD Codes: K35.32 - Acute appendicitis with perforation and localized peritonitis, without abscess SNOMED: [id number] Status: stable Assessment/Plan: npo ivf pain rx abx IR drain per surgery Subjective ROS Limited/Unobtainable: No Constitutional: Reports: no symptoms HEENT: Reports: no symptoms Cardiovascular: Reports: no symptoms Respiratory: Reports: no symptoms Gastrointestinal/Abdominal: Reports: abdominal pain Genitourinary: Reports: no symptoms Neurologic/Psychiatric: Reports: no symptoms Endocrine: Reports: no symptoms Hematologic/Lymphatic: Reports: no symptoms Allergies: Coded Allergies: No Known Allergies (Unverified , 11/02/19) All Systems: reviewed and negative except above Subjective feels better today. decreased pain,. surgery noted, on iv abx and ivf. Objective Last 24 Hour Vital Signs Date Time Temp Pulse Resp B/P (MAP) Pulse Ox O2 Delivery O2 Flow Rate FiO2 11/05/19 06:53 98.0 11/05/19 04:00 98.0 61 20 128/88 (101) 96 11/05/19 00:00 98.1 60 20 122/76 (91) 100 11/04/19 22:55 98.2 11/04/19 21:00 Room Air 11/04/19 20:00 98.2 75 20 150/98 (115) 97 11/04/19 16:00 97.5 78 20 145/88 (107) 96 11/04/19 12:00 98.1 75 20 144/100 (115) 96 11/04/19 09:00 Room Air 11/04/19 08:00 98.0 78 18 128/86 (100) 96 Intake and Output 11/04/19 11/05/19 19:00 07:00 Intake Total 400 ml 110.0 ml Output Total 300 ml Balance 400 ml -190.0 ml Intake Oral 400 ml IV Total 110.0 ml Output Urine Total 300 ml Laboratory Tests 11/05/19 05:35: White Blood Count 8.2, Red Blood Count 4.64L, Hemoglobin 14.2, Hematocrit 40.2L , Mean Corpuscular Volume 87, Mean Corpuscular Hemoglobin 30.7, Mean Corpuscular Hemoglobin Concent 35.4, Red Cell Distribution Width 11.4L, Platelet Count 250, Mean Platelet Volume 7.4, Neutrophils (%) (Auto) 66.7, Lymphocytes (%) (Auto) 22.6, Monocytes (%) (Auto) 7.7, Eosinophils (%) (Auto) 2.3, Basophils (%) (Auto) 0.7, Erythrocyte Sedimentation Rate [Pending], Sodium Level 142, Potassium Level 3.5, Chloride Level 108H, Carbon Dioxide Level 27, Anion Gap 7, Blood Urea Nitrogen 13, Creatinine 0.8, Estimat Glomerular Filtration Rate > 60, Glucose Level 87, Calcium Level 8.0L, Total Bilirubin 0.7 , Aspartate Amino Transf (AST/SGOT) 10L, Alanine Aminotransferase (ALT/SGPT) 30 , Alkaline Phosphatase 71, C-Reactive Protein, Quantitative 15.8H, Total Protein 6.9, Albumin 2.9L, Globulin 4.0, Albumin/Globulin Ratio 0.7L Height (Feet): 5 Height (Inches): 11.00 Weight (Pounds): 230 Objective General Appearance: WD/WN, alert Neck: supple Cardiovascular: normal rate Respiratory/Chest: chest wall non-tender, lungs clear, normal breath sounds, no respiratory distress Abdomen: normal bowel sounds, non tender, soft Edema: no edema noted Arm (L), no edema noted Arm (R), no edema noted Leg (L), no edema noted Leg (R), no edema noted Pedal (L), no edema noted Pedal (R), no edema noted Generalized Alfredo Snyder MD Nov 05, 2019 07:59
[2019-11-05 08:00] VITALS: BP 156/93
[2019-11-05] MEDS ORDERED: Lidocaine 1% Plain 30 ml INJ SCH (11:15)
[2019-11-05 12:00] VITALS: BP 154/93
--- NOTE | 2019-11-05 12:20 | Infectious Diseases Prog Note ---
Assessment/Plan Assessment/Plan IMPRESSION: Acute perforated appendicitis, Intra-abdominal abscess, diverticulosis of colon without diverticulitis. RECOMMENDATIONS: continue IV Zosyn. Will have CT guided drainage of abscess Subjective ROS Limited/Unobtainable: No Respiratory: Reports: no symptoms Cardiovascular: Reports: no symptoms Gastrointestinal/Abdominal: Reports: other - mild pain in RLQ Genitourinary: Reports: no symptoms Allergies: Coded Allergies: No Known Allergies (Unverified , 11/02/19) Objective Vital Signs Last 24 Hour Vital Signs Date Time Temp Pulse Resp B/P (MAP) Pulse Ox O2 Delivery O2 Flow Rate FiO2 11/05/19 08:00 97.6 59 20 156/93 (114) 96 11/05/19 06:53 98.0 11/05/19 04:00 98.0 61 20 128/88 (101) 96 11/05/19 00:00 98.1 60 20 122/76 (91) 100 11/04/19 22:55 98.2 11/04/19 21:00 Room Air 11/04/19 20:00 98.2 75 20 150/98 (115) 97 11/04/19 16:00 97.5 78 20 145/88 (107) 96 Height (Feet): 5 Height (Inches): 11.00 Weight (Pounds): 230 General Appearance: no acute distress HEENT: mucous membranes moist Respiratory/Chest: lungs clear Cardiovascular: normal rate Abdomen: soft, non tender Extremities: no edema Neurologic/Psychiatric: alert, oriented x 3, responsive Laboratory Tests Test 11/05/19 05:35 White Blood Count 8.2 K/UL (4.8-10.8) Red Blood Count 4.64 M/UL (4.70-6.10) L Hemoglobin 14.2 G/DL (14.2-18.0) Hematocrit 40.2 % (42.0-52.0) L Mean Corpuscular Volume 87 FL (80-99) Mean Corpuscular Hemoglobin 30.7 PG (27.0-31.0) Mean Corpuscular Hemoglobin Concent 35.4 G/DL (32.0-36.0) Red Cell Distribution Width 11.4 % (11.6-14.8) L Platelet Count 250 K/UL (150-450) Mean Platelet Volume 7.4 FL (6.5-10.1) Neutrophils (%) (Auto) 66.7 % (45.0-75.0) Lymphocytes (%) (Auto) 22.6 % (20.0-45.0) Monocytes (%) (Auto) 7.7 % (1.0-10.0) Eosinophils (%) (Auto) 2.3 % (0.0-3.0) Basophils (%) (Auto) 0.7 % (0.0-2.0) Erythrocyte Sedimentation Rate 33 MM/HR (0-15) H Sodium Level 142 MMOL/L (136-145) Potassium Level 3.5 MMOL/L (3.5-5.1) Chloride Level 108 MMOL/L (98-107) H Carbon Dioxide Level 27 MMOL/L (21-32) Anion Gap 7 mmol/L (5-15) Blood Urea Nitrogen 13 mg/dL (7-18) Creatinine 0.8 MG/DL (0.55-1.30) Estimat Glomerular Filtration Rate > 60 mL/min (>60) Glucose Level 87 MG/DL (74-106) Calcium Level 8.0 MG/DL (8.5-10.1) L Total Bilirubin 0.7 MG/DL (0.2-1.0) Aspartate Amino Transf (AST/SGOT) 10 U/L (15-37) L Alanine Aminotransferase (ALT/SGPT) 30 U/L (12-78) Alkaline Phosphatase 71 U/L (46-116) C-Reactive Protein, Quantitative 15.8 mg/dL (0.00-0.90) H Total Protein 6.9 G/DL (6.4-8.2) Albumin 2.9 G/DL (3.4-5.0) L Globulin 4.0 g/dL Albumin/Globulin Ratio 0.7 (1.0-2.7) L Current Medications Medications (Trade) Dose Ordered Sig/Sarah Route PRN Reason Start Time Stop Time Status Last Admin Dose Admin Acetaminophen (Tylenol) 650 mg Q4H PRN ORAL Mild Pain/Temp > 100.5 11/02/19 22:15 12/02/19 22:14 11/03/19 18:33 Dextrose/ Electrolytes 1,000 ml @ 125 mls/hr Q8H IV 11/02/19 22:15 12/02/19 22:14 11/05/19 05:13 Hydromorphone HCl (Dilaudid) 1 mg Q4H PRN IVP For Pain 11/02/19 22:15 11/09/19 22:14 11/05/19 06:23 Ketorolac Tromethamine (Toradol 30mg) 30 mg Q6H PRN IV For Pain 11/04/19 16:30 11/09/19 16:29 11/04/19 22:25 Lidocaine HCl (Xylocaine 1% 30ml) 30 ml ONCE INJ 11/05/19 11:15 11/05/19 18:00 Ondansetron HCl (Zofran) 4 mg Q6H PRN IVP Nausea & Vomiting 11/02/19 22:15 12/02/19 22:14 11/02/19 23:38 Piperacillin Sod/ Tazobactam Sod 3.375 gm/Sodium Chloride 110 ml @ 27.5 mls/hr EVERY 8 HOURS IVPB 11/03/19 06:00 11/10/19 05:59 11/05/19 06:17 Bola Shi MD Nov 05, 2019 12:20
--- NOTE | 2019-11-05 14:17 | Surgery Progress Note ---
Surgery Progress Note Subjective Symptoms: improved, voiding well, passing flatus, pain decreased Objective Last 24 Hour Vital Signs Date Time Temp Pulse Resp B/P (MAP) Pulse Ox O2 Delivery O2 Flow Rate FiO2 11/05/19 08:00 97.6 59 20 156/93 (114) 96 11/05/19 06:53 98.0 11/05/19 04:00 98.0 61 20 128/88 (101) 96 11/05/19 00:00 98.1 60 20 122/76 (91) 100 11/04/19 22:55 98.2 11/04/19 21:00 Room Air 11/04/19 20:00 98.2 75 20 150/98 (115) 97 11/04/19 16:00 97.5 78 20 145/88 (107) 96 I&O Intake and Output 11/04/19 11/05/19 19:00 07:00 Intake Total 400 ml 110.0 ml Output Total 300 ml Balance 400 ml -190.0 ml Intake Oral 400 ml IV Total 110.0 ml Output Urine Total 300 ml Cardiovascular: RSR Respiratory: clear Abdomen: soft, non-tender, present bowel sounds, non-distended Extremities: no edema, no tenderness, no cyanosis Laboratory Tests Test 11/05/19 05:35 White Blood Count 8.2 K/UL (4.8-10.8) Red Blood Count 4.64 M/UL (4.70-6.10) L Hemoglobin 14.2 G/DL (14.2-18.0) Hematocrit 40.2 % (42.0-52.0) L Mean Corpuscular Volume 87 FL (80-99) Mean Corpuscular Hemoglobin 30.7 PG (27.0-31.0) Mean Corpuscular Hemoglobin Concent 35.4 G/DL (32.0-36.0) Red Cell Distribution Width 11.4 % (11.6-14.8) L Platelet Count 250 K/UL (150-450) Mean Platelet Volume 7.4 FL (6.5-10.1) Neutrophils (%) (Auto) 66.7 % (45.0-75.0) Lymphocytes (%) (Auto) 22.6 % (20.0-45.0) Monocytes (%) (Auto) 7.7 % (1.0-10.0) Eosinophils (%) (Auto) 2.3 % (0.0-3.0) Basophils (%) (Auto) 0.7 % (0.0-2.0) Erythrocyte Sedimentation Rate 33 MM/HR (0-15) H Sodium Level 142 MMOL/L (136-145) Potassium Level 3.5 MMOL/L (3.5-5.1) Chloride Level 108 MMOL/L (98-107) H Carbon Dioxide Level 27 MMOL/L (21-32) Anion Gap 7 mmol/L (5-15) Blood Urea Nitrogen 13 mg/dL (7-18) Creatinine 0.8 MG/DL (0.55-1.30) Estimat Glomerular Filtration Rate > 60 mL/min (>60) Glucose Level 87 MG/DL (74-106) Calcium Level 8.0 MG/DL (8.5-10.1) L Total Bilirubin 0.7 MG/DL (0.2-1.0) Aspartate Amino Transf (AST/SGOT) 10 U/L (15-37) L Alanine Aminotransferase (ALT/SGPT) 30 U/L (12-78) Alkaline Phosphatase 71 U/L (46-116) C-Reactive Protein, Quantitative 15.8 mg/dL (0.00-0.90) H Total Protein 6.9 G/DL (6.4-8.2) Albumin 2.9 G/DL (3.4-5.0) L Globulin 4.0 g/dL Albumin/Globulin Ratio 0.7 (1.0-2.7) L Plan Problems: (1) Appendicitis with perforation Assessment & Plan: 34M acute appendicitis with perforation and abscess afebrile, HD stable labs improved on IV abx CT with 1. Acute appendicitis with perforation and an abscess measuring 2.6 cm partially encircling the appendiceal tip. 2. Colonic diverticulosis without diverticulitis. npo iv fluids iv abx discussed with IR for potential drain placement vs aspiration. planned for tomorrow serial abdominal exams. doing okay and improving will cont to monitor thank you will follow with Maxwell Keys Nov 05, 2019 14:17
[2019-11-05 16:00] VITALS: BP 152/93
--- NOTE | 2019-11-05 16:09 | NUR ---
CASE MANAGEMENT: REVIEW 11/04/2019 SI: APPENDICITIS w/ABSCESS . APPENDICITIS w/ PERFORATION 98.1 75 20 144/100 96% ROOM AIR CA+ 8.0 IS: IV ZOSYN Q8HR IV D5@125ML/HR IV ZOFRAN Q6HR/PRN IV TORADOL Q6HR/PRN \: 3E MED SURG UNIT DCP: PATIENT IS FROM HOME PLAN: IR TO PLACE DRAIN CASE MANAGEMENT: REVIEW 11/05/2019 SI: APPENDICITIS w/ABSCESS . APPENDICITIS w/ PERFORATION 97.6 59 20 156/93 96% ROOM AIR CA+ 8.0 CL-108 IS: K-DUR PO X1 IV ZOSYN Q8HR IV D5@125ML/HR IV ZOFRAN Q6HR/PRN IV TORADOL Q6HR/PRN \: 3E MED SURG UNIT DCP: PATIENT IS FROM HOME PLAN: IR TO PLACE DRAIN IN AM
--- NOTE | 2019-11-05 19:12 | NUR ---
HAND-OFF: Report given to KATELYN Thompson.
--- NOTE | 2019-11-05 19:17 | NUR ---
NURSE NOTES: Patient a/a/o x 4, breathing unlabored on room air without distress. Denies pain or discomfort at this time. Bed placed at the lowest with brake and siderails up for patient safety. Call light placed within reach and encourage to use. Will continue to monitor and provide care as ordered.
[2019-11-05 20:00] VITALS: BP 154/92
[2019-11-06] VITALS (13 sets, daily range): BP systolic 128–164; BP diastolic 82–103
[2019-11-06] MEDS: HYDROmorphone 1mg/ml Carpuject IVP PRN ×3 (00:10→12:04)
--- NOTE | 2019-11-06 05:19 | NUR ---
NURSE NOTES: Informed Dr. Snyder regarding patient's last bowel movement date. No new orders given. Will continue to monitor.
[2019-11-06] MEDS: Piperacillin/Tazobactam 3.375 GM in NS 110 ML IVPB SCH ×3 (05:21→21:58)
[2019-11-06 06:40] LABS: BASOPHILS % (AUTO) 0.6 % (0.0-2.0); EOSINOPHILS % (AUTO) 2.4 % (0.0-3.0); HEMATOCRIT 42.6 % (42.0-52.0); MEAN CORPUSCULAR VOLUME 87 FL (80-99); MONOCYTES % (AUTO) 5.8 % (1.0-10.0); NEUTROPHILS % (AUTO) 71.3 % (45.0-75.0); PLATELET COUNT 296 K/UL (150-450); RED BLOOD COUNT 4.89 M/UL (4.70-6.10); RED CELL DISTRIBUTION WIDTH 11.4 % (11.6-14.8)
[2019-11-06 07:14] LABS: ANION GAP 5 mmol/L (5-15); BLOOD UREA NITROGEN 11 mg/dL (7-18); CALCIUM 8.4 MG/DL (8.5-10.1); CARBON DIOXIDE 30 MMOL/L (21-32); CHLORIDE 106 MMOL/L (98-107); POTASSIUM 3.9 MMOL/L (3.5-5.1); SODIUM 140 MMOL/L (136-145)
--- NOTE | 2019-11-06 07:28 | NUR ---
HAND-OFF: Report given to KATELYN Tillman. Patient in stable condition. Plan of care endorsed.
--- NOTE | 2019-11-06 07:31 | NUR ---
NURSE NOTES: Received pt in bed, AAO x 4. RA. No c/o of pain/distress at this moment. IV on RAC 20g intact and patent, running zosyn. Bed in the lowest and locked. Call light within reach. Will continue to monitor
--- NOTE | 2019-11-06 08:15 | CDS Physician Query ---
Clarification is required for compliance, coding accuracy, and to reflect severity of illness for this patient Dear Dr. Bola Shi M.D. Date: 11/06/2019 CDS: Erasto Marcel This is a 34-year-old male, admitted on night of 11/02/2019, complaining of sudden onset of abdominal pain in right lower quadrant, it was 8/10. In hospital, the patient was found to have leukocytosis of 15.5. No fever. CT scan of the abdomen and pelvis showed perforated appendicitis and intra-abdominal abscess. IMPRESSION: Acute perforated appendicitis, mid intra-abdominal abscess, has diverticulosis of colon without diverticulitis. WBC: 15.5 Tx: IV PIPERACILLIN/TAZOBACTAM According to the clinical indications above, please indicate below the condition PHYSICIAN RESPONSE: Sepsis SIRS SIRS with organ dysfunction Septic Shock Not applicable Other: Present on Admission: Yes No Clinically Undetermined Physician signature Date Please also document in your Progress Notes and/or Discharge Summary and indicate if the condition was present on admission. ERIC
[2019-11-06] MEDS ORDERED: Omnipaque-300 100ml vial INJ PRN (08:45)
--- NOTE | 2019-11-06 09:37 | General Progress Note ---
Assessment/Plan Problem List: (1) Appendicitis with perforation ICD Codes: K35.32 - Acute appendicitis with perforation and localized peritonitis, without abscess SNOMED: 78163426 Status: stable Assessment/Plan: npo ivf pain rx abx IR drain per surgery Subjective ROS Limited/Unobtainable: No Constitutional: Reports: malaise HEENT: Reports: no symptoms Cardiovascular: Reports: no symptoms Respiratory: Reports: no symptoms Gastrointestinal/Abdominal: Reports: abdominal pain Genitourinary: Reports: no symptoms Neurologic/Psychiatric: Reports: no symptoms Endocrine: Reports: no symptoms Hematologic/Lymphatic: Reports: no symptoms Allergies: Coded Allergies: No Known Allergies (Unverified , 11/02/19) All Systems: reviewed and negative except above Subjective no complaints. still with some rlq abd pain. on iv pain meds and iv abx Objective Last 24 Hour Vital Signs Date Time Temp Pulse Resp B/P (MAP) Pulse Ox O2 Delivery O2 Flow Rate FiO2 11/06/19 08:00 98.0 63 20 143/92 (109) 99 11/06/19 04:00 98.6 59 20 128/84 (99) 95 11/06/19 00:00 98.1 57 18 147/87 (107) 96 11/05/19 21:00 Room Air 11/05/19 20:00 98.7 60 18 154/92 (112) 96 11/05/19 16:00 98.6 63 20 152/93 (112) 97 11/05/19 12:00 97.3 61 20 154/93 (113) 97 Intake and Output 11/05/19 11/06/19 19:00 07:00 Intake Total 1007.5 ml Balance 1007.5 ml Intake Oral 120 ml IV Total 887.5 ml # Voids 3 Laboratory Tests 11/05/19 16:45: Prothrombin Time 10.7, Prothromb Time International Ratio 1.0, Activated Partial Thromboplast Time 26 11/06/19 05:30: White Blood Count 8.0, Red Blood Count 4.89, Hemoglobin 15.0, Hematocrit 42.6, Mean Corpuscular Volume 87, Mean Corpuscular Hemoglobin 30.7, Mean Corpuscular Hemoglobin Concent 35.2, Red Cell Distribution Width 11.4L, Platelet Count 296, Mean Platelet Volume 7.5, Neutrophils (%) (Auto) 71.3, Lymphocytes (%) (Auto) 20.0, Monocytes (%) (Auto) 5.8, Eosinophils (%) (Auto) 2.4, Basophils (%) (Auto ) 0.6, Sodium Level 140, Potassium Level 3.9, Chloride Level 106, Carbon Dioxide Level 30, Anion Gap 5, Blood Urea Nitrogen 11, Creatinine 1.0, Estimat Glomerular Filtration Rate > 60, Glucose Level 81, Calcium Level 8.4L Height (Feet): 5 Height (Inches): 11.00 Weight (Pounds): 230 Objective General Appearance: WD/WN, alert Neck: supple Cardiovascular: normal rate Respiratory/Chest: chest wall non-tender, lungs clear, normal breath sounds, no respiratory distress Abdomen: normal bowel sounds, non tender, soft Edema: no edema noted Arm (L), no edema noted Arm (R), no edema noted Leg (L), no edema noted Leg (R), no edema noted Pedal (L), no edema noted Pedal (R), no edema noted Generalized Alfredo Snyder MD Nov 06, 2019 09:37
--- NOTE | 2019-11-06 10:48 | Infectious Diseases Prog Note ---
Assessment/Plan Assessment/Plan antibiotics ; zosyn A 1. acute perforated appendix with abscess 2. leucocytosis resolved P 1. continue zosyn 2. will follow up cultures 3. drainage planned Subjective Constitutional: Denies: fever, chills Respiratory: Denies: shortness of breath, dry cough Gastrointestinal/Abdominal: Denies: nausea, vomiting, diarrhea Musculoskeletal: Reports: pain - abdominal Allergies: Coded Allergies: No Known Allergies (Unverified , 11/02/19) Objective Vital Signs Last 24 Hour Vital Signs Date Time Temp Pulse Resp B/P (MAP) Pulse Ox O2 Delivery O2 Flow Rate FiO2 11/06/19 08:00 98.0 63 20 143/92 (109) 99 11/06/19 04:00 98.6 59 20 128/84 (99) 95 11/06/19 00:00 98.1 57 18 147/87 (107) 96 11/05/19 21:00 Room Air 11/05/19 20:00 98.7 60 18 154/92 (112) 96 11/05/19 16:00 98.6 63 20 152/93 (112) 97 11/05/19 12:00 97.3 61 20 154/93 (113) 97 Height (Feet): 5 Height (Inches): 11.00 Weight (Pounds): 230 Respiratory/Chest: lungs clear Cardiovascular: normal rate, regular rhythm, no gallop/murmur Abdomen: tender - RLQ Extremities: no edema Laboratory Tests Test 11/05/19 16:45 11/06/19 05:30 Prothrombin Time 10.7 SEC (9.30-11.50) Prothromb Time International Ratio 1.0 (0.9-1.1) Activated Partial Thromboplast Time 26 SEC (23-33) White Blood Count 8.0 K/UL (4.8-10.8) Red Blood Count 4.89 M/UL (4.70-6.10) Hemoglobin 15.0 G/DL (14.2-18.0) Hematocrit 42.6 % (42.0-52.0) Mean Corpuscular Volume 87 FL (80-99) Mean Corpuscular Hemoglobin 30.7 PG (27.0-31.0) Mean Corpuscular Hemoglobin Concent 35.2 G/DL (32.0-36.0) Red Cell Distribution Width 11.4 % (11.6-14.8) L Platelet Count 296 K/UL (150-450) Mean Platelet Volume 7.5 FL (6.5-10.1) Neutrophils (%) (Auto) 71.3 % (45.0-75.0) Lymphocytes (%) (Auto) 20.0 % (20.0-45.0) Monocytes (%) (Auto) 5.8 % (1.0-10.0) Eosinophils (%) (Auto) 2.4 % (0.0-3.0) Basophils (%) (Auto) 0.6 % (0.0-2.0) Sodium Level 140 MMOL/L (136-145) Potassium Level 3.9 MMOL/L (3.5-5.1) Chloride Level 106 MMOL/L (98-107) Carbon Dioxide Level 30 MMOL/L (21-32) Anion Gap 5 mmol/L (5-15) Blood Urea Nitrogen 11 mg/dL (7-18) Creatinine 1.0 MG/DL (0.55-1.30) Estimat Glomerular Filtration Rate > 60 mL/min (>60) Glucose Level 81 MG/DL (74-106) Calcium Level 8.4 MG/DL (8.5-10.1) L Current Medications Medications (Trade) Dose Ordered Sig/Sarah Route PRN Reason Start Time Stop Time Status Last Admin Dose Admin Acetaminophen (Tylenol) 650 mg Q4H PRN ORAL Mild Pain/Temp > 100.5 11/02/19 22:15 12/02/19 22:14 11/03/19 18:33 Barium Sulfate (Readi-Cat 2) 450 ml NOW PRN ORAL Radiology Procedure 11/06/19 08:45 11/08/19 08:38 Dextrose/ Electrolytes 1,000 ml @ 125 mls/hr Q8H IV 11/02/19 22:15 12/02/19 22:14 11/05/19 22:00 Hydromorphone HCl (Dilaudid) 1 mg Q4H PRN IVP For Pain 11/02/19 22:15 11/09/19 22:14 11/06/19 04:14 Iohexol (OMNIPAQUE-300 100ml) 100 ml NOW PRN INJ Radiology Procedure 11/06/19 08:45 11/08/19 08:38 Ketorolac Tromethamine (Toradol 30mg) 30 mg Q6H PRN IV For Pain 11/04/19 16:30 11/09/19 16:29 11/04/19 22:25 Ondansetron HCl (Zofran) 4 mg Q6H PRN IVP Nausea & Vomiting 11/02/19 22:15 12/02/19 22:14 11/02/19 23:38 Piperacillin Sod/ Tazobactam Sod 3.375 gm/Sodium Chloride 110 ml @ 27.5 mls/hr EVERY 8 HOURS IVPB 11/03/19 06:00 11/10/19 05:59 11/06/19 05:21 Coco Figueroa MD Nov 06, 2019 10:48
--- NOTE | 2019-11-06 11:01 | NUR ---
NURSE NOTES: Pt is off unit for CT abd/pelvis with contrast
--- NOTE | 2019-11-06 13:23 | Pre-Procedure Note/Attestation ---
Pre-Procedure Note/Attestation Complete Prior to Procedure Procedure Narrative: laparoscopic appendectomy Indications for Procedure Pre-Operative Diagnosis: acute appendicitis Attestation I attest that I discussed the nature of the procedure; its benefits; risks and complications; and alternatives (and the risks and benefits of such alternatives ), prior to the procedure, with the patient (or the patient's legal data entry representative). I attest that, if there was a reasonable possibility of needing a blood transfusion, the patient (or the patient's legal data entry representative) was given the [facility] standardized written summary, pursuant to the [place] Blood Safety Act ([place] Health and Safety Code # 1645, as amended). I attest that I re-evaluated the patient just prior to the surgery and that there has been no change in the patient's H&P, except as documented below: Maxwell Uribe Nov 06, 2019 13:23
--- NOTE | 2019-11-06 13:25 | Surgery Progress Note ---
Surgery Progress Note Subjective Additional Comments Patient seen and examined bedside. States he is feeling better but still does have some right lower quadrant discomfort specially with moving. No nausea fever chills. Labs noted. Repeat CT today for potential IR drainage identified potentially no abscess but phlegmon. Had long discussion with patient at the bedside plan for OR today for laparoscopic appendectomy possible open Objective Last 24 Hour Vital Signs Date Time Temp Pulse Resp B/P (MAP) Pulse Ox O2 Delivery O2 Flow Rate FiO2 11/06/19 12:00 97.9 74 20 164/103 (123) 97 11/06/19 09:00 Room Air 11/06/19 08:00 98.0 63 20 143/92 (109) 99 11/06/19 04:00 98.6 59 20 128/84 (99) 95 11/06/19 00:00 98.1 57 18 147/87 (107) 96 11/05/19 21:00 Room Air 11/05/19 20:00 98.7 60 18 154/92 (112) 96 11/05/19 16:00 98.6 63 20 152/93 (112) 97 I&O Intake and Output 11/05/19 11/06/19 19:00 07:00 Intake Total 1007.5 ml Balance 1007.5 ml Intake Oral 120 ml IV Total 887.5 ml # Voids 3 Cardiovascular: RSR Respiratory: clear Abdomen: soft, tenderness, present bowel sounds, non-distended Extremities: no edema, no tenderness, no cyanosis Laboratory Tests Test 11/05/19 16:45 11/06/19 05:30 Prothrombin Time 10.7 SEC (9.30-11.50) Prothromb Time International Ratio 1.0 (0.9-1.1) Activated Partial Thromboplast Time 26 SEC (23-33) White Blood Count 8.0 K/UL (4.8-10.8) Red Blood Count 4.89 M/UL (4.70-6.10) Hemoglobin 15.0 G/DL (14.2-18.0) Hematocrit 42.6 % (42.0-52.0) Mean Corpuscular Volume 87 FL (80-99) Mean Corpuscular Hemoglobin 30.7 PG (27.0-31.0) Mean Corpuscular Hemoglobin Concent 35.2 G/DL (32.0-36.0) Red Cell Distribution Width 11.4 % (11.6-14.8) L Platelet Count 296 K/UL (150-450) Mean Platelet Volume 7.5 FL (6.5-10.1) Neutrophils (%) (Auto) 71.3 % (45.0-75.0) Lymphocytes (%) (Auto) 20.0 % (20.0-45.0) Monocytes (%) (Auto) 5.8 % (1.0-10.0) Eosinophils (%) (Auto) 2.4 % (0.0-3.0) Basophils (%) (Auto) 0.6 % (0.0-2.0) Sodium Level 140 MMOL/L (136-145) Potassium Level 3.9 MMOL/L (3.5-5.1) Chloride Level 106 MMOL/L (98-107) Carbon Dioxide Level 30 MMOL/L (21-32) Anion Gap 5 mmol/L (5-15) Blood Urea Nitrogen 11 mg/dL (7-18) Creatinine 1.0 MG/DL (0.55-1.30) Estimat Glomerular Filtration Rate > 60 mL/min (>60) Glucose Level 81 MG/DL (74-106) Calcium Level 8.4 MG/DL (8.5-10.1) L Plan Problems: (1) Appendicitis with perforation Assessment & Plan: 34M acute appendicitis with perforation and abscess afebrile, HD stable labs improved on IV abx CT with 1. Acute appendicitis with perforation and an abscess measuring 2.6 cm partially encircling the appendiceal tip. 2. Colonic diverticulosis without diverticulitis. npo iv fluids iv abx discussed with IR for potential drain placement vs aspiration. planned for tomorrow serial abdominal exams. Evaluation by IR today. No significant abscess but phlegmon. Patient still with right lower quadrant tenderness. Labs improved. Afebrile. I had long discussion with patient regarding risk medicine alternatives to interventions versus continued nonoperative management. After doing so we have decided to proceed with surgical intervention given above findings. Or today doing okay and improving will cont to monitor thank you will follow with Maxwell Keys Nov 06, 2019 13:25
--- NOTE | 2019-11-06 15:00 | NUR ---
NURSE NOTES: pt is off unit for appendectomy
[2019-11-06] MEDS ORDERED: Midazolam 2mg/2ml Inj ONE (15:23)
[2019-11-06] MEDS ORDERED: fentaNYL 100 mcg/2 mL IV ONE (15:23)
--- NOTE | 2019-11-06 15:24 | Diagnostic Imaging Report ---
Clinical Indication: Abdominal pain Technique: Patient given oral contrast. IV administration nonionic contrast. Venous phase spiral acquisition obtained through the abdomen and pelvis. Multiplanar reconstructions were generated. Total dose length product 1369 mGycm. CTDIvol(s) 26 mGy. Dose reduction achieved using automated exposure control Comparison: 11/02/2019 Findings: Again demonstrated is enlargement of the appendix. Focal area of low-attenuation at the tip of the appendix with surrounding enhancing soft tissue measures 18 mm diameter, is unchanged. Uncertain as to whether this represents an extraluminal abscess adjacent to the tip or dilatation of the tip. There is an area of low-attenuation measuring 3.1 x 1.1 cm along the proximal shaft of the appendix. It is unclear whether this represents dilation of the luminal contents of the appendix versus intramural abscess or subserosal phlegmon. There is inflammation of the periappendiceal and pelvic fat. This is slightly more extensive than on the prior study. No definite well-defined extraluminal fluid collections are identified. No extraluminal gas is identified. Enlarged right lower quadrant and mesenteric root lymph nodes are again demonstrated, appear more prominent than previously. Ingested contrast has traversed the entirety of the GI tract. There is no small bowel distention or small bowel wall thickening. There is colonic diverticulosis. No evidence of diverticulitis. No free or loculated intraperitoneal gas or fluid elsewhere. The distal esophagus, stomach, duodenum are unremarkable. The liver is diffusely hypoattenuating, consistent with fatty change. Minimal focal sparing seen in the usual location adjacent to the gallbladder fossa. The gallbladder, bile ducts, pancreas, spleen, adrenals, kidneys are all unremarkable. No retroperitoneal mass or adenopathy. No pelvic mass or adenopathy. There is trace pleural fluid now present bilaterally, not evident previously. There are bilateral basilar pulmonary parenchymal atelectatic changes. The bones are unremarkable. Impression: Again demonstrated is evidence of acute appendicitis. Fluid attenuation area measuring 18 mm at the tip of the appendix may represent a small abscess or may represent a dilated bulbous tip. This is unchanged from previously. Low-attenuation within or adjacent to the wall of the proximal appendix may represent a small intramural abscess versus subserosal phlegmon. There is slightly increased periappendiceal inflammatory change. No definite drainable abscess collection demonstrated. Interim development of bilateral basilar pulmonary atelectasis and trace bilateral pleural fluid Fatty liver Colonic diverticulosis. No evidence of diverticulitis Findings previously discussed by phone with Dr. Uribe The CT scanner at [facility] is accredited by the [employer] and the scans are performed using protocols designed to limit radiation exposure to as low as reasonably achievable to attain images of sufficient resolution adequate for diagnostic evaluation.
[2019-11-06] MEDS ORDERED: Propofol 200mg/20ml IV ONE ×2 (15:25→16:38)
[2019-11-06] MEDS ORDERED: Lidocaine 1% MPF 10mg/ml 5ml ONE (15:25)
[2019-11-06] MEDS ORDERED: Succinylcholine 20mg/ml 10ml vial ONE (15:31)
[2019-11-06] MEDS ORDERED: Rocuronium Bromide 50mg/5ml Inj IV ONE (15:31)
--- NOTE | 2019-11-06 16:42 | NUR ---
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 98.0 HR 59 RR 20 B/P 143/52 IS; IVF D5KCL @ 125ML/HR ZOSYN IV DILAUDID IV EXP LAP MED/SURG STATUS
[2019-11-06] MEDS ORDERED: Sterile Water Irrig 1000ml IRRIG ONE (17:00)
[2019-11-06] MEDS ORDERED: Neostigmine 1mg/ml 10ml Inj ONE (17:00)
[2019-11-06] MEDS ORDERED: LR 1000ml ONE ×2 (17:00)
[2019-11-06] MEDS ORDERED: NS Irrig 1000ml IRRIG ONE ×2 (17:02→17:22)
[2019-11-06] MEDS ORDERED: Morphine Sulfate 10mg/ml Inj ONE (17:25)
[2019-11-06] MEDS ORDERED: Ketorolac 30mg Inj ONE (17:30)
[2019-11-06] MEDS ORDERED: Sodium Chloride 10ml vial INJ ONE (17:30)
[2019-11-06] MEDS ORDERED: Glycopyrrolate 0.2mg/ml 1ml Vial ONE (17:30)
[2019-11-06] MEDS ORDERED: NS Irrig 2000ml IRRIG ONE (17:34)
[2019-11-06] MEDS ORDERED: LR 1000ml 1,000 ML IVLG SCH (17:42)
--- NOTE | 2019-11-06 17:42 | Anethesia Preoperative Eval ---
Anesthesia Pre-op PMH/ROS General Date of Evaluation: Nov 06, 2019 Time of Evaluation: 16:40 Anesthesiologist: Zane ASA Score: ASA 2 Mallampati Score Class I : Soft palate, uvula, fauces, pillars visible Class II: Soft palate, uvula, fauces visible Class III: Soft palate, base of uvula visible Class IV: Only hard plate visible Mallampati Classification: Class II Surgeon: Maki Diagnosis: Acute appendicitis Surgical Procedure: Appendectomy Anesthesia History: none Family History: no anesthesia problems Allergies: Coded Allergies: No Known Allergies (Unverified , 11/02/19) Medications: see eMAR Patient NPO?: Yes NPO Date: Nov 06, 2019 NPO Time: 0000 Past Medical History Cardiovascular: Reports: HTN - borderline; Denies: CAD, SD, valve dz, arrhythmia, other Pulmonary: Denies: asthma, COPD, EUGENIA, other Gastrointestinal/Genitourinary: Reports: GERD; Denies: CRI, ESRD, other Neurologic/Psychiatric: Denies: dementia, CVA, depression/anxiety, TIA, other Endocrine: Denies: DM, hypothyroidism, steroids, other HEENT: Denies: cataract (L), cataract (R), glaucoma, PAUMA (L), PAUMA (R), other Hematology/Immune: Denies: anemia, DVT, bleeding disorder, other Musculoskeletal/Integumentary: Denies: OA, RA, DJD, DDD, edema, other Other: obesity PMH Narrative: as above, admitted for acute abdominal pain PSxH Narrative: none Anesthesia Pre-op Phys. Exam Physician Exam Last Vital Signs Date Time Temp Pulse Resp B/P (MAP) Pulse Ox O2 Delivery O2 Flow Rate FiO2 11/06/19 12:00 97.9 74 20 164/103 (123) 97 11/06/19 09:00 Room Air Constitutional: NAD Neurologic: CN 2-12 intact Cardiovascular: RRR, no M/R/G Respiratory: CTA Gastrointestinal: other - some tenderness Airway Exam Mallampati Score: Class II MO: full Neck: flexible ROM: full Teeth: intact Dentures: no upper, no lower Anesthesia Pre-op A/P Labs Hematology Test 11/06/19 05:30 White Blood Count 8.0 K/UL (4.8-10.8) Red Blood Count 4.89 M/UL (4.70-6.10) Hemoglobin 15.0 G/DL (14.2-18.0) Hematocrit 42.6 % (42.0-52.0) Mean Corpuscular Volume 87 FL (80-99) Mean Corpuscular Hemoglobin 30.7 PG (27.0-31.0) Mean Corpuscular Hemoglobin Concent 35.2 G/DL (32.0-36.0) Red Cell Distribution Width 11.4 % (11.6-14.8) L Platelet Count 296 K/UL (150-450) Mean Platelet Volume 7.5 FL (6.5-10.1) Neutrophils (%) (Auto) 71.3 % (45.0-75.0) Lymphocytes (%) (Auto) 20.0 % (20.0-45.0) Monocytes (%) (Auto) 5.8 % (1.0-10.0) Eosinophils (%) (Auto) 2.4 % (0.0-3.0) Basophils (%) (Auto) 0.6 % (0.0-2.0) Chemistry Test 11/06/19 05:30 Sodium Level 140 MMOL/L (136-145) Potassium Level 3.9 MMOL/L (3.5-5.1) Chloride Level 106 MMOL/L (98-107) Carbon Dioxide Level 30 MMOL/L (21-32) Anion Gap 5 mmol/L (5-15) Blood Urea Nitrogen 11 mg/dL (7-18) Creatinine 1.0 MG/DL (0.55-1.30) Estimat Glomerular Filtration Rate > 60 mL/min (>60) Glucose Level 81 MG/DL (74-106) Calcium Level 8.4 MG/DL (8.5-10.1) L Risk Assessment & Plan Assessment: ASA 2 Plan: GA with ETT Status Change Before Surgery: No Pre-Antibiotics Drug: as scheduled Miguel Degroot MD Nov 06, 2019 17:42
[2019-11-06] MEDS ORDERED: Hydromorphone 0.5mg/0.5ml inj IVP PRN (17:45)
[2019-11-06] MEDS ORDERED: DiphenhydrAMINE 50mg/ml Inj IVP PRN (17:45)
[2019-11-06] MEDS ORDERED: Meperidine 50mg/ml Inj(FOR RIGORS ONLY) IVP PRN (17:45)
[2019-11-06] MEDS ORDERED: Metoclopramide 10mg/2ml Inj IVP PRN ×2 (17:45→18:30)
[2019-11-06] MEDS ORDERED: Ketorolac 30mg Inj IV PRN (17:45)
[2019-11-06] MEDS ORDERED: NS Irrig 4000ml IRRIG ONE (17:47)
[2019-11-06] MEDS ORDERED: Milk of Magnesia 30ml Ud ORAL PRN (18:30)
[2019-11-06] MEDS ORDERED: Sennosides 8.6mg tab ORAL PRN (18:30)
[2019-11-06] MEDS ORDERED: HYDROcodone/Acetamin 5/325 tab ORAL PRN (18:30)
[2019-11-06] MEDS ORDERED: DiphenhydrAMINE 25mg Tab ORAL PRN (18:30)
--- NOTE | 2019-11-06 18:30 | Brief Operative Note ---
Immediate Post Operative Note Operative Note Pre-op Diagnosis: acute appendicitis Procedure: lap appy Post-op Diagnosis: same as pre-op Surgeon: rica Anesthesiologist: kristian Anesthesia: general, local Specimen: yes Complications: none Condition: stable Fluids: see records Estimated Blood Loss: minimal Drains: none Implant(s) used?: No Maxwell Uribe Nov 06, 2019 18:30
--- NOTE | 2019-11-06 18:35 | Immediate Post-Op Evaluation ---
Immediate Post-Op Evalulation Immediate Post-Op Evalulation Procedure: Laparoscopic appendectomy Date of Evaluation: Nov 06, 2019 Time of Evaluation: 18:34 IV Fluids: 1200 Blood Products: none Estimated Blood Loss: 100 Urinary Output: none Blood Pressure Systolic: 137 Blood Pressure Diastolic: 86 Pulse Rate: 86 Respiratory Rate: 22 O2 Sat by Pulse Oximetry: 98 Temperature (Fahrenheit): 97.8 Pain Score (1-10): 2 Nausea: No Vomiting: No Complications none Patient Status: awake, patent, extubated, none Hydration Status: adequate Miguel Degroot MD Nov 06, 2019 18:35
--- NOTE | 2019-11-06 19:03 | NUR ---
HAND-OFF: Report given to KATELYN Thompson.
[2019-11-06] MEDS ORDERED: Meperidine 25mg/0.5ml Inj (FOR RIGORS ONLY) IV PRN ×2 (19:30)
--- NOTE | 2019-11-06 19:36 | NUR ---
NURSE NOTES: Patient off unit, in OR.
--- NOTE | 2019-11-06 20:02 | NUR ---
NURSE NOTES: Patient back from OR. Patient alert and verbally responsive to let his needs known. Breathing unlabored on room air without distress. Denies pain at this time. Surgical site noted with Dermabond x 3. Bed placed at the lowest with brake and siderails up for safety. SCDs on and working. IV site noted on left forearm intact, dry, clean, and patent. Call light placed within reach and encouraged to use. Will continue to monitor and provide care as ordered.
[2019-11-06] MEDS: HYDROcodone/Acetamin 10/325 tab ORAL PRN (23:29)
[2019-11-07] VITALS: BP 142/92
[2019-11-07] MEDS: Morphine Sulfate 4mg/ml Inj (IV USE ONLY) IVP PRN ×2 (00:42→04:43)
--- NOTE | 2019-11-07 01:00 | Operative Note - Dictated ---
DATE OF OPERATION: 11/06/2019 PREOPERATIVE DIAGNOSIS: Acute appendicitis. POSTOPERATIVE DIAGNOSIS: Acute perforated appendicitis. OPERATION PERFORMED: Laparoscopic appendectomy. ATTENDING SURGEON: Maxwell Uribe M.D. NON EMERGENCY SERVICES AMBULANCE DRIVER: None. ANESTHESIOLOGIST: Dr. Degroot. 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 ESTIMATED BLOOD LOSS: Minimal. IV FLUIDS: Please see anesthesia records. COMPLICATIONS: None. DRAINS: None. COUNTS: Sponge and needle count correct x2. SPECIMENS: Appendix sent to pathology for review. WOUND CLASSIFICATION: Class 3. IV ANTIBIOTICS: The patient is on scheduled IV Zosyn. INDICATIONS FOR PROCEDURE: This is a 34-year-old male, presented to [facility] with worsening abdominal pain for one day, right lower quadrant with leukocytosis and CT consistent with acute perforated appendicitis with abscess. The patient was admitted for conservative management, nonoperative with IV antibiotics and IR drain. The patient initially did well. Fevers resolved. Leukocytosis improved. Pain began to slowly improve, but did persist overall. He had a repeat CT scan, which identified worsening inflammatory changes over the course of 72 hours of IV antibiotics and at this point, risks, benefits, and alternatives of surgical intervention were discussed with the patient as he did not significantly improve with conservative nonoperative management and after doing so, the patient expressed understanding and consented to proceed forward with surgical intervention. Consent was obtained. The patient is scheduled for 11/06/2019. OPERATIVE NOTE: The patient was taken to the operating room and placed on the operating table in supine position with left arm tucked. All bony prominences were well padded. SCDs were placed. Preoperative time-out was taken to identify the patient, procedure, operative staff, and surgical staff. General anesthesia was induced. The patient was intubated. The abdomen was clipped, prepped, and draped in the standard surgical fashion. Local anesthetic was infiltrated at all skin incisions and port sites. An infraumbilical incision was made and carried down through the subcutaneous tissue to the fascia. Fascia was elevated and incised and entry into the abdomen obtained using open Ayush technique. A 12 mm Ayush trocar was inserted. The abdomen was insufflated to 12 to 15 mmHg. Laparoscope was inserted and the abdomen inspected. Secondary trocars were placed under direct visualization beginning with a 12 mm left lower quadrant followed by 5 mm suprapubic port. No injury from secondary trocar placement noted. abdomen in the right lower quadrant, there was thickened omentum overlying what was found to be a dilated inflamed appendix. The omentum was gently dissected off the phlegmon and the appendix. The cecum was identified as well as the teniae was followed down to the base / confluence where the base of the appendix was noted. The base of the appendix otherwise fairly healthy, but the tip and the remainder of the appendix was very inflamed and dilated. In manipulating the appendix, a purulent fluid collection was evacuated and suctioned out. The base of the appendix was then grasped and a window was made between the appendix and mesoappendix, and the appendix divided at the base using a laparoscopic linear stapler. Following this, the thickened inflammatory mesentery was slowly dissected out until the appendiceal artery was identified and ligated using a laparoscopic linear stapler. Once it was divided, there was still some oozing from the staple line and laparoscopic clips were used to obtain hemostasis. Following this, the appendix placed in an endoscopic retrieval bag within the abdomen using left lower quadrant abdominal port site. The base of the staple line and mesoappendix staple line were inspected and hemostasis noted. They were intact and viable. The abdomen was irrigated and suctioned with copious amounts of warm normal saline until suction clear. There was good hemostasis. No bleeding, no pus, no other abscess collections, no other abnormalities identified. The right upper quadrant, left upper quadrant, right lower quadrant, and left lower quadrant were otherwise intact and stable. The pelvis was suctioned and clear as well and intact and stable. No other abnormalities noted within the abdomen. At this time, the patient was flattened out and secondary trocars removed under direct visualization followed by the umbilical trocar site. The umbilical trocar site fascia and left lower quadrant port site fascia were reapproximated using [id number] #0 Vicryl sutures. The remaining skin incisions were cleansed and reapproximated using 4-0 Monocryl subcuticular interrupted sutures. Skin glue and Steri-Strips were applied. The patient tolerated the procedure well, was extubated, and taken to the postanesthetic care unit in stable condition. Maxwell Uribe M.D. DR: ADRI JOB#: [id number] CC: ERIC
[2019-11-07 04:00] VITALS: BP 146/97
[2019-11-07] MEDS: Piperacillin/Tazobactam 3.375 GM in NS 110 ML IVPB SCH ×3 (05:23→21:51)
[2019-11-07 05:46] LABS: BASOPHILS % (AUTO) 0.7 % (0.0-2.0); EOSINOPHILS % (AUTO) 1.4 % (0.0-3.0); HEMATOCRIT 40.5 % (42.0-52.0); HEMOGLOBIN 14.2 G/DL (14.2-18.0); LYMPHOCYTES % (AUTO) 16.6 % (20.0-45.0); MEAN CORPUSCULAR VOLUME 86 FL (80-99); MONOCYTES % (AUTO) 7.4 % (1.0-10.0); PLATELET COUNT 298 K/UL (150-450); RED BLOOD COUNT 4.68 M/UL (4.70-6.10); RED CELL DISTRIBUTION WIDTH 11.2 % (11.6-14.8); WHITE BLOOD COUNT 7.6 K/UL (4.8-10.8)
[2019-11-07 06:08] LABS: ANION GAP 9 mmol/L (5-15); BLOOD UREA NITROGEN 11 mg/dL (7-18); CALCIUM 8.1 MG/DL (8.5-10.1); CARBON DIOXIDE 28 MMOL/L (21-32); CHLORIDE 103 MMOL/L (98-107); POTASSIUM 3.8 MMOL/L (3.5-5.1); SODIUM 140 MMOL/L (136-145)
--- NOTE | 2019-11-07 07:00 | NUR ---
NURSE NOTES: patient voided and ambulated in the morning. patient spoke about pain management with Dr. Snyder. Dr. Snyder will be making adjustments on pain medications. will continue to monitor.
--- NOTE | 2019-11-07 07:18 | General Progress Note ---
Assessment/Plan Problem List: (1) Appendicitis with perforation ICD Codes: K35.32 - Acute appendicitis with perforation and localized peritonitis, without abscess SNOMED: 42216258 Status: stable Assessment/Plan: pain rx adjusted ivf abx post op care mobilize Subjective ROS Limited/Unobtainable: No Constitutional: Reports: malaise, weakness HEENT: Reports: no symptoms Cardiovascular: Reports: no symptoms Respiratory: Reports: no symptoms Gastrointestinal/Abdominal: Reports: abdominal pain Genitourinary: Reports: no symptoms Neurologic/Psychiatric: Reports: no symptoms Endocrine: Reports: no symptoms Hematologic/Lymphatic: Reports: no symptoms Allergies: Coded Allergies: No Known Allergies (Unverified , 11/02/19) All Systems: reviewed and negative except above Subjective c/o abd pain. s/p appy. no fever or chills. walking Objective Last 24 Hour Vital Signs Date Time Temp Pulse Resp B/P (MAP) Pulse Ox O2 Delivery O2 Flow Rate FiO2 11/07/19 04:00 99.1 89 18 146/97 (113) 95 11/07/19 00:00 98.9 74 20 142/92 (109) 96 11/06/19 21:00 Room Air 11/06/19 20:00 98.0 76 18 137/84 (101) 94 11/06/19 19:58 97.8 11/06/19 19:45 97.8 68 15 135/82 97 Room Air 11/06/19 19:35 97.8 11/06/19 19:30 83 13 144/92 100 Nasal Cannula 3 11/06/19 19:15 71 12 145/90 100 Nasal Cannula 3 11/06/19 19:00 72 16 144/91 100 Nasal Cannula 3 11/06/19 18:50 72 12 139/83 100 Nasal Cannula 3 11/06/19 18:40 78 15 137/89 100 Simple Mask 6 11/06/19 18:35 83 12 134/84 100 Simple Mask 6 11/06/19 18:35 86 22 98 11/06/19 18:30 97.9 83 10 137/86 100 Simple Mask 6 11/06/19 12:00 97.9 74 20 164/103 (123) 97 11/06/19 09:00 Room Air 11/06/19 08:00 98.0 63 20 143/92 (109) 99 Intake and Output 11/06/19 11/07/19 19:00 07:00 Intake Total 1407.5 ml 407.5 ml Output Total 100 ml Balance 1307.5 ml 407.5 ml Intake Oral 120 ml IV Total 1407.5 ml 287.5 ml Estimated Blood Loss 100 ml Laboratory Tests 11/07/19 05:15: White Blood Count 7.6, Red Blood Count 4.68L, Hemoglobin 14.2, Hematocrit 40.5L , Mean Corpuscular Volume 86, Mean Corpuscular Hemoglobin 30.3, Mean Corpuscular Hemoglobin Concent 35.1, Red Cell Distribution Width 11.2L, Platelet Count 298, Mean Platelet Volume 6.2L, Neutrophils (%) (Auto) 74.0, Lymphocytes (%) (Auto) 16.6L, Monocytes (%) (Auto) 7.4, Eosinophils (%) (Auto) 1.4, Basophils (%) (Auto) 0.7, Sodium Level 140, Potassium Level 3.8, Chloride Level 103, Carbon Dioxide Level 28, Anion Gap 9, Blood Urea Nitrogen 11, Creatinine 1.0, Estimat Glomerular Filtration Rate > 60, Glucose Level 98, Calcium Level 8.1L Height (Feet): 5 Height (Inches): 11.00 Weight (Pounds): 240 Objective General Appearance: WD/WN, alert Neck: supple Cardiovascular: normal rate Respiratory/Chest: chest wall non-tender, lungs clear, normal breath sounds, no respiratory distress Abdomen: normal bowel sounds, non tender, soft Edema: no edema noted Arm (L), no edema noted Arm (R), no edema noted Leg (L), no edema noted Leg (R), no edema noted Pedal (L), no edema noted Pedal (R), no edema noted Generalized Alfredo Snyder MD Nov 07, 2019 07:18
[2019-11-07] MEDS ORDERED: Chloraseptic Spray 20mL Bottle ORAL PRN (07:30)
--- NOTE | 2019-11-07 07:36 | 48 Hour Post Anesthesia Eval ---
Post Anesthesia Evaluation Procedure: Laparoscopic appendectomy Date of Evaluation: Nov 07, 2019 Time of Evaluation: 06:12 Blood Pressure Systolic: 146 0: 77 Pulse Rate: 89 Respiratory Rate: 16 Temperature (Fahrenheit): 99.1 O2 Sat by Pulse Oximetry: 95 Airway: patent Nausea: No Vomiting: No Pain Intensity: 2 Hydration Status: adequate Cardiopulmonary Status: Stable Mental Status/LOC: patient returned to baseline Follow-up Care/Observations: 0 Post-Anesthesia Complications: 0 Follow-up care needed: N/A Hiren Frankel MD Nov 07, 2019 07:36
--- NOTE | 2019-11-07 07:48 | NUR ---
HAND-OFF: Report given to KATELYN Tillman. Plan of care endorsed.
--- NOTE | 2019-11-07 07:50 | NUR ---
NURSE NOTES: Received pt in bed, AAO x 4. c/o of pain 06/19. IV on L wrist 20g intact and patent, running zosyn. Side rails x2. Bed in the lowest and locked. Call light within reach. Will continue to monitor
[2019-11-07 08:00] VITALS: BP 146/81
[2019-11-07] MEDS: Docusate 100mg cap ORAL SCH ×2 (08:01→17:27)
[2019-11-07] MEDS: Morphine Sulfate 2mg/ml Inj(IV/IM USE ONLY) IVP PRN ×3 (09:47→18:50)
[2019-11-07 12:00] VITALS: BP 156/97
--- NOTE | 2019-11-07 13:20 | NUR ---
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
--- NOTE | 2019-11-07 14:57 | Surgery Progress Note ---
Surgery Progress Note Subjective Procedure Performed lap appy Additional Comments doing well post op incisional pain no n/v/f/ c Objective Last 24 Hour Vital Signs Date Time Temp Pulse Resp B/P (MAP) Pulse Ox O2 Delivery O2 Flow Rate FiO2 11/07/19 12:00 98.5 64 16 156/97 (116) 90 11/07/19 08:40 Room Air 11/07/19 08:00 99.3 78 16 146/81 (102) 92 11/07/19 07:36 89 16 95 11/07/19 04:00 99.1 89 18 146/97 (113) 95 11/07/19 00:00 98.9 74 20 142/92 (109) 96 11/06/19 21:00 Room Air 11/06/19 20:00 98.0 76 18 137/84 (101) 94 11/06/19 19:58 97.8 11/06/19 19:45 97.8 68 15 135/82 97 Room Air 11/06/19 19:35 97.8 11/06/19 19:30 83 13 144/92 100 Nasal Cannula 3 11/06/19 19:15 71 12 145/90 100 Nasal Cannula 3 11/06/19 19:00 72 16 144/91 100 Nasal Cannula 3 11/06/19 18:50 72 12 139/83 100 Nasal Cannula 3 11/06/19 18:40 78 15 137/89 100 Simple Mask 6 11/06/19 18:35 83 12 134/84 100 Simple Mask 6 11/06/19 18:35 86 22 98 11/06/19 18:30 97.9 83 10 137/86 100 Simple Mask 6 I&O Intake and Output 11/06/19 11/07/19 19:00 07:00 Intake Total 1407.5 ml 407.5 ml Output Total 100 ml Balance 1307.5 ml 407.5 ml Intake Oral 120 ml IV Total 1407.5 ml 287.5 ml Estimated Blood Loss 100 ml Dressing: dry Wound: clean Cardiovascular: RSR Respiratory: clear Abdomen: soft, non-tender, present bowel sounds, non-distended Extremities: no edema, no tenderness, no cyanosis Laboratory Tests Test 11/07/19 05:15 White Blood Count 7.6 K/UL (4.8-10.8) Red Blood Count 4.68 M/UL (4.70-6.10) L Hemoglobin 14.2 G/DL (14.2-18.0) Hematocrit 40.5 % (42.0-52.0) L Mean Corpuscular Volume 86 FL (80-99) Mean Corpuscular Hemoglobin 30.3 PG (27.0-31.0) Mean Corpuscular Hemoglobin Concent 35.1 G/DL (32.0-36.0) Red Cell Distribution Width 11.2 % (11.6-14.8) L Platelet Count 298 K/UL (150-450) Mean Platelet Volume 6.2 FL (6.5-10.1) L Neutrophils (%) (Auto) 74.0 % (45.0-75.0) Lymphocytes (%) (Auto) 16.6 % (20.0-45.0) L Monocytes (%) (Auto) 7.4 % (1.0-10.0) Eosinophils (%) (Auto) 1.4 % (0.0-3.0) Basophils (%) (Auto) 0.7 % (0.0-2.0) Sodium Level 140 MMOL/L (136-145) Potassium Level 3.8 MMOL/L (3.5-5.1) Chloride Level 103 MMOL/L (98-107) Carbon Dioxide Level 28 MMOL/L (21-32) Anion Gap 9 mmol/L (5-15) Blood Urea Nitrogen 11 mg/dL (7-18) Creatinine 1.0 MG/DL (0.55-1.30) Estimat Glomerular Filtration Rate > 60 mL/min (>60) Glucose Level 98 MG/DL (74-106) Calcium Level 8.1 MG/DL (8.5-10.1) L Plan Problems: (1) Appendicitis with perforation Assessment & Plan: 34M acute appendicitis with perforation and abscess afebrile, HD stable labs improved on IV abx CT with 1. Acute appendicitis with perforation and an abscess measuring 2.6 cm partially encircling the appendiceal tip. 2. Colonic diverticulosis without diverticulitis. npo iv fluids iv abx discussed with IR for potential drain placement vs aspiration. planned for tomorrow serial abdominal exams. Evaluation by IR today. No significant abscess but phlegmon. Patient still with right lower quadrant tenderness. Labs improved. Afebrile. I had long discussion with patient regarding risk medicine alternatives to interventions versus continued nonoperative management. After doing so we have decided to proceed with surgical intervention given above findings. Or today doing okay and improving will cont to monitor d/c lap appy pod #1 d/c planning for tomorrow iv abx pain control thank you will follow with Maxwell Keys Nov 07, 2019 14:56
--- NOTE | 2019-11-07 15:32 | Infectious Diseases Prog Note ---
Assessment/Plan Assessment/Plan IMPRESSION: Acute perforated appendicitis, S/P appendectomy Intra-abdominal abscess, diverticulosis of colon without diverticulitis. Fatty liver RECOMMENDATIONS: continue IV Zosyn. Subjective ROS Limited/Unobtainable: No Constitutional: Reports: no symptoms Respiratory: Reports: no symptoms Gastrointestinal/Abdominal: Reports: other - has laparoscopic appendectomy Genitourinary: Reports: no symptoms Allergies: Coded Allergies: No Known Allergies (Unverified , 11/02/19) Objective Vital Signs Last 24 Hour Vital Signs Date Time Temp Pulse Resp B/P (MAP) Pulse Ox O2 Delivery O2 Flow Rate FiO2 11/07/19 12:00 98.5 64 16 156/97 (116) 90 11/07/19 08:40 Room Air 11/07/19 08:00 99.3 78 16 146/81 (102) 92 11/07/19 07:36 89 16 95 11/07/19 04:00 99.1 89 18 146/97 (113) 95 11/07/19 00:00 98.9 74 20 142/92 (109) 96 11/06/19 21:00 Room Air 11/06/19 20:00 98.0 76 18 137/84 (101) 94 11/06/19 19:58 97.8 11/06/19 19:45 97.8 68 15 135/82 97 Room Air 11/06/19 19:35 97.8 11/06/19 19:30 83 13 144/92 100 Nasal Cannula 3 11/06/19 19:15 71 12 145/90 100 Nasal Cannula 3 11/06/19 19:00 72 16 144/91 100 Nasal Cannula 3 11/06/19 18:50 72 12 139/83 100 Nasal Cannula 3 11/06/19 18:40 78 15 137/89 100 Simple Mask 6 11/06/19 18:35 83 12 134/84 100 Simple Mask 6 11/06/19 18:35 86 22 98 11/06/19 18:30 97.9 83 10 137/86 100 Simple Mask 6 Height (Feet): 5 Height (Inches): 11.00 Weight (Pounds): 240 General Appearance: no acute distress HEENT: mucous membranes moist Cardiovascular: normal rate Abdomen: other - mild tender in R side Extremities: no edema Neurologic/Psychiatric: alert, oriented x 3, responsive Laboratory Tests Test 11/07/19 05:15 White Blood Count 7.6 K/UL (4.8-10.8) Red Blood Count 4.68 M/UL (4.70-6.10) L Hemoglobin 14.2 G/DL (14.2-18.0) Hematocrit 40.5 % (42.0-52.0) L Mean Corpuscular Volume 86 FL (80-99) Mean Corpuscular Hemoglobin 30.3 PG (27.0-31.0) Mean Corpuscular Hemoglobin Concent 35.1 G/DL (32.0-36.0) Red Cell Distribution Width 11.2 % (11.6-14.8) L Platelet Count 298 K/UL (150-450) Mean Platelet Volume 6.2 FL (6.5-10.1) L Neutrophils (%) (Auto) 74.0 % (45.0-75.0) Lymphocytes (%) (Auto) 16.6 % (20.0-45.0) L Monocytes (%) (Auto) 7.4 % (1.0-10.0) Eosinophils (%) (Auto) 1.4 % (0.0-3.0) Basophils (%) (Auto) 0.7 % (0.0-2.0) Sodium Level 140 MMOL/L (136-145) Potassium Level 3.8 MMOL/L (3.5-5.1) Chloride Level 103 MMOL/L (98-107) Carbon Dioxide Level 28 MMOL/L (21-32) Anion Gap 9 mmol/L (5-15) Blood Urea Nitrogen 11 mg/dL (7-18) Creatinine 1.0 MG/DL (0.55-1.30) Estimat Glomerular Filtration Rate > 60 mL/min (>60) Glucose Level 98 MG/DL (74-106) Calcium Level 8.1 MG/DL (8.5-10.1) L Current Medications Medications (Trade) Dose Ordered Sig/Sarah Route PRN Reason Start Time Stop Time Status Last Admin Dose Admin Acetaminophen (Tylenol) 650 mg Q6H PRN ORAL Mild Pain (Pain Scale 1-3) 11/06/19 18:30 12/06/19 18:29 Acetaminophen/ Hydrocodone Bitart ([place] 10/325) 1 tab Q4H PRN ORAL Severe Pain (Pain Scale 7-10) 11/06/19 18:30 11/13/19 18:29 11/06/19 23:29 Acetaminophen/ Hydrocodone Bitart ([place] 5/325) 1 tab Q4H PRN ORAL Moderate Pain (Pain Scale 4-6) 11/06/19 18:30 11/13/19 18:29 Al Hydroxide/Mg Hydroxide (Mylanta) 15 ml Q6H PRN ORAL DYSPEPSIA 11/06/19 18:30 12/06/19 18:29 11/07/19 14:46 Barium Sulfate (Readi-Cat 2) 450 ml NOW PRN ORAL Radiology Procedure 11/06/19 08:45 11/08/19 08:38 Diphenhydramine HCl (Benadryl) 25 mg Q8H PRN ORAL Itching/Pruritis 11/06/19 18:30 12/06/19 18:29 Docusate Sodium (Colace) 100 mg TWICE A DAY ORAL 11/07/19 09:00 12/07/19 08:59 11/07/19 08:01 Hydromorphone HCl (Dilaudid) 2 mg Q4H PRN IVP Severe Pain (Pain Scale 7-10) 11/07/19 07:30 11/14/19 07:29 11/07/19 12:09 Iohexol (OMNIPAQUE-300 100ml) 100 ml NOW PRN INJ Radiology Procedure 11/06/19 08:45 11/08/19 08:38 Magnesium Hydroxide (Mom) 30 ml BIDPRN PRN ORAL Constipation 11/06/19 18:30 12/06/19 18:29 Metoclopramide HCl (Reglan) 10 mg Q6H PRN IVP Nausea & Vomiting 11/06/19 18:30 12/06/19 18:29 Morphine Sulfate (Morphine Sulfate) 2 mg Q4H PRN IVP pain scale 4-6 11/06/19 18:30 11/13/19 18:29 11/07/19 14:43 Ondansetron HCl (Zofran) 4 mg Q6H PRN IVP Nausea & Vomiting 11/02/19 22:15 12/02/19 22:14 11/02/19 23:38 Phenol/Menthol (Chloraseptic) 1 spray Q3H PRN ORAL sore throat 11/07/19 07:30 12/07/19 07:29 11/07/19 09:46 Piperacillin Sod/ Tazobactam Sod 3.375 gm/Sodium Chloride 110 ml @ 27.5 mls/hr EVERY 8 HOURS IVPB 11/03/19 06:00 11/10/19 05:59 11/07/19 14:35 Sennosides (Senokot) 8.6 mg BIDPRN PRN ORAL Constipation 11/06/19 18:30 12/06/19 18:29 Bola Shi MD Nov 07, 2019 15:32
[2019-11-07 16:00] VITALS: BP 165/102
[2019-11-07] MEDS: HYDROcodone/Acetamin 10/325 tab ORAL PRN (17:32)
--- NOTE | 2019-11-07 19:35 | NUR ---
HAND-OFF: Report given to KATELYN Mendez.
--- NOTE | 2019-11-07 19:35 | NUR ---
NURSE NOTES: Receive a report from KATELYN Waters. Round is done. Pt is lying in bed. Breathing is even and non labored. No acute distress or respiratory distress. Despite pain medication earlier, still noted pain. Pt is aware of time apart of pain medication. Pt states that pain is more from gas. No gas passing yet. Bowel sound is decreased. Encourage to ambulation to increase bowel movement. Pt verbalizes understanding. Surgery site is clean with dermaband. IV on wrist on left hand is intact without infiltration. Call light within reach. Will continue to monitor.
[2019-11-07 20:00] VITALS: BP 163/115
--- NOTE | 2019-11-07 20:15 | NUR ---
NURSE NOTES: BP/NH noted 167/116mmHg-84 on left arm and 163/115mmHg-79 on right arm. No RILEY noted. Notify Dr. Snyder for BP and receive order of Clondine 0.1 mg 1 t po prn q 4hrs. Order noted and carried out. Will continue to monitor.
--- NOTE | 2019-11-07 22:25 | NUR ---
NURSE NOTES: Pt has been moving around in the room. No gas passing out yet. Provide information of process after surgery. After having pain medication, pain level decreased 4/10 and feeling comfortable. Will continue to monitor.
[2019-11-08] VITALS: BP 165/108
--- NOTE | 2019-11-08 | NUR ---
NURSE NOTES: Pt is awake and alert. Pain level increased since last pain medication. BP: 165/108mmHg without RILEY. It's been less than 4hrs after taking Clonidine 0.1mg 1 t po. Given prn pain medication and will follow up BP and pain. Will continue to monitor.
[2019-11-08] MEDS: Morphine Sulfate 2mg/ml Inj(IV/IM USE ONLY) IVP PRN ×2 (00:06→04:46)
--- NOTE | 2019-11-08 00:45 | NUR ---
NURSE NOTES: After pain medication, Morphine, pain level did not decrease much but BP checked as 155/103mmHg. No gas pass yet. Will continue to monitor.
[2019-11-08 00:50] VITALS: BP 155/102
[2019-11-08 04:35] VITALS: BP 160/101
--- NOTE | 2019-11-08 04:45 | NUR ---
NURSE NOTES: Pt states that he passed gas several times. After that, pain level dropped as 5/10 and felt much comfortable. BP checked as 160/101mmHg without RILEY. Given Clonidine and will continue to monitor.
[2019-11-08 06:00] VITALS: BP 147/100
[2019-11-08] MEDS: Piperacillin/Tazobactam 3.375 GM in NS 110 ML IVPB SCH (06:00)
--- NOTE | 2019-11-08 06:00 | NUR ---
NURSE NOTES: Pt feels comfortable and pain level decreased /. Rechecked BP-147/100mmHg. Will continue to monitor.
[2019-11-08] MEDS ORDERED: Tubing IV Secondary IV ONE ×2 (06:25→12:44)
--- NOTE | 2019-11-08 07:45 | NUR ---
HAND-OFF: Report given to KATELYN Shelley. Round is done.
--- NOTE | 2019-11-08 07:45 | General Progress Note ---
Assessment/Plan Problem List: (1) Appendicitis with perforation ICD Codes: K35.32 - Acute appendicitis with perforation and localized peritonitis, without abscess SNOMED: [id number] Status: stable Assessment/Plan: pain rx adjusted add bp rx abx post op care mobilize Subjective ROS Limited/Unobtainable: No Constitutional: Reports: no symptoms HEENT: Reports: no symptoms Cardiovascular: Reports: no symptoms Respiratory: Reports: no symptoms Gastrointestinal/Abdominal: Reports: abdominal pain Genitourinary: Reports: no symptoms Neurologic/Psychiatric: Reports: no symptoms Endocrine: Reports: no symptoms Hematologic/Lymphatic: Reports: no symptoms Allergies: Coded Allergies: No Known Allergies (Unverified , 11/02/19) All Systems: reviewed and negative except above Subjective c/o abd pain- less. s/p appy. no fever or chills. walking +passing gas Objective Last 24 Hour Vital Signs Date Time Temp Pulse Resp B/P (MAP) Pulse Ox O2 Delivery O2 Flow Rate FiO2 11/08/19 06:00 147/100 (116) 11/08/19 04:40 160/101 11/08/19 04:35 97.9 68 18 160/101 (120) 11/08/19 00:50 155/102 (119) 11/08/19 00:00 98.8 72 20 165/108 (127) 95 11/07/19 21:00 Room Air 11/07/19 20:47 167/116 11/07/19 20:00 99.4 84 20 163/115 (131) 94 11/07/19 16:00 98.5 67 20 165/102 (123) 98 11/07/19 12:00 98.5 64 16 156/97 (116) 90 11/07/19 08:40 Room Air 11/07/19 08:00 99.3 78 16 146/81 (102) 92 Intake and Output 11/07/19 11/08/19 19:00 07:00 Intake Total 900 ml 250 ml Balance 900 ml 250 ml Intake Oral 900 ml 250 ml # Voids 1 Height (Feet): 5 Height (Inches): 11.00 Weight (Pounds): 240 Objective General Appearance: WD/WN, alert Neck: supple Cardiovascular: normal rate Respiratory/Chest: chest wall non-tender, lungs clear, normal breath sounds, no respiratory distress Abdomen: normal bowel sounds, non tender, soft Edema: no edema noted Arm (L), no edema noted Arm (R), no edema noted Leg (L), no edema noted Leg (R), no edema noted Pedal (L), no edema noted Pedal (R), no edema noted Generalized Alfredo Snyder MD Nov 08, 2019 07:45
--- NOTE | 2019-11-08 07:46 | NUR ---
NURSE NOTES: Received patient in bed awake. No SOB or acute distress. With complaints of pain 3-4/10, calm and pleasant. IV line intact and patent, no s/sx of infiltration. HOB elevated. Bed locked in lowest position. Call light within reach. Will continue plan of care.
[2019-11-08 08:00] VITALS: BP 146/85
[2019-11-08 09:09] VITALS: BP 146/85
[2019-11-08] MEDS: Docusate 100mg cap ORAL SCH (09:09)
--- NOTE | 2019-11-08 10:14 | Infectious Diseases Prog Note ---
Assessment/Plan Assessment/Plan IMPRESSION: Acute perforated appendicitis, S/P appendectomy Intra-abdominal abscess, diverticulosis of colon without diverticulitis. Fatty liver Hypertension RECOMMENDATIONS: continue IV Zosyn in hospital At time of discharge PO Levaquin & Flagyl X 7 days Subjective ROS Limited/Unobtainable: No Constitutional: Reports: no symptoms Respiratory: Reports: no symptoms Cardiovascular: Reports: no symptoms Gastrointestinal/Abdominal: Reports: no symptoms, other - tolerating diet Genitourinary: Reports: no symptoms Allergies: Coded Allergies: No Known Allergies (Unverified , 11/02/19) Objective Vital Signs Last 24 Hour Vital Signs Date Time Temp Pulse Resp B/P (MAP) Pulse Ox O2 Delivery O2 Flow Rate FiO2 11/08/19 09:09 78 146/85 11/08/19 08:00 97.3 78 20 146/85 (105) 94 11/08/19 06:00 147/100 (116) 11/08/19 04:40 160/101 11/08/19 04:35 97.9 68 18 160/101 (120) 11/08/19 00:50 155/102 (119) 11/08/19 00:00 98.8 72 20 165/108 (127) 95 11/07/19 21:00 Room Air 11/07/19 20:47 167/116 11/07/19 20:00 99.4 84 20 163/115 (131) 94 11/07/19 16:00 98.5 67 20 165/102 (123) 98 11/07/19 12:00 98.5 64 16 156/97 (116) 90 Height (Feet): 5 Height (Inches): 11.00 Weight (Pounds): 240 General Appearance: no acute distress Respiratory/Chest: normal breath sounds Cardiovascular: normal rate Abdomen: soft, non tender Extremities: no edema Neurologic/Psychiatric: alert, oriented x 3, responsive Current Medications Medications (Trade) Dose Ordered Sig/Sarah Route PRN Reason Start Time Stop Time Status Last Admin Dose Admin Acetaminophen (Tylenol) 650 mg Q6H PRN ORAL Mild Pain (Pain Scale 1-3) 11/06/19 18:30 12/06/19 18:29 Acetaminophen/ Hydrocodone Bitart ([place] 10/325) 1 tab Q4H PRN ORAL Severe Pain (Pain Scale 7-10) 11/06/19 18:30 11/13/19 18:29 11/07/19 17:32 Acetaminophen/ Hydrocodone Bitart ([place] 5/325) 1 tab Q4H PRN ORAL Moderate Pain (Pain Scale 4-6) 11/06/19 18:30 11/13/19 18:29 11/08/19 09:48 Al Hydroxide/Mg Hydroxide (Mylanta) 15 ml Q6H PRN ORAL DYSPEPSIA 11/06/19 18:30 12/06/19 18:29 11/07/19 20:48 Amlodipine Besylate (Norvasc) 5 mg DAILY ORAL 11/08/19 09:00 12/08/19 08:59 11/08/19 09:09 Clonidine HCl (Catapres Tab) 0.1 mg Q4H PRN ORAL SBP>160MMHG 11/07/19 20:30 12/07/19 20:29 11/08/19 04:40 Diphenhydramine HCl (Benadryl) 25 mg Q8H PRN ORAL Itching/Pruritis 11/06/19 18:30 12/06/19 18:29 Docusate Sodium (Colace) 100 mg TWICE A DAY ORAL 11/07/19 09:00 12/07/19 08:59 11/08/19 09:09 Hydromorphone HCl (Dilaudid) 2 mg Q4H PRN IVP Severe Pain (Pain Scale 7-10) 11/07/19 07:30 11/14/19 07:29 11/08/19 01:59 Magnesium Hydroxide (Mom) 30 ml BIDPRN PRN ORAL Constipation 11/06/19 18:30 12/06/19 18:29 11/07/19 21:51 Metoclopramide HCl (Reglan) 10 mg Q6H PRN IVP Nausea & Vomiting 11/06/19 18:30 12/06/19 18:29 Morphine Sulfate (Morphine Sulfate) 2 mg Q4H PRN IVP pain scale 4-6 11/06/19 18:30 11/13/19 18:29 11/08/19 04:46 Ondansetron HCl (Zofran) 4 mg Q6H PRN IVP Nausea & Vomiting 11/02/19 22:15 12/02/19 22:14 1/24/20 23:38 Phenol/Menthol (Chloraseptic) 1 spray Q3H PRN ORAL sore throat 11/07/19 07:30 12/07/19 07:29 11/07/19 09:46 Piperacillin Sod/ Tazobactam Sod 3.375 gm/Sodium Chloride 110 ml @ 27.5 mls/hr EVERY 8 HOURS IVPB 11/03/19 06:00 11/10/19 05:59 11/08/19 06:00 Sennosides (Senokot) 8.6 mg BIDPRN PRN ORAL Constipation 11/06/19 18:30 12/06/19 18:29 Bola Shi MD Nov 08, 2019 10:14
[2019-11-08] MEDS ORDERED: LEVAQUIN500 MG ORAL (12:17)
[2019-11-08] MEDS ORDERED: METRONIDAZOLE500 MG ORAL (12:18)
--- NOTE | 2019-11-08 12:35 | Surgery Progress Note ---
Surgery Progress Note Subjective Procedure Performed lap appy Symptoms: improved, tolerating diet, voiding well, passing flatus, pain decreased Objective Last 24 Hour Vital Signs Date Time Temp Pulse Resp B/P (MAP) Pulse Ox O2 Delivery O2 Flow Rate FiO2 11/08/19 09:09 78 146/85 11/08/19 09:00 Room Air 11/08/19 08:00 97.3 78 20 146/85 (105) 94 11/08/19 06:00 147/100 (116) 11/08/19 04:40 160/101 11/08/19 04:35 97.9 68 18 160/101 (120) 11/08/19 00:50 155/102 (119) 11/08/19 00:00 98.8 72 20 165/108 (127) 95 11/07/19 21:00 Room Air 11/07/19 20:47 167/116 11/07/19 20:00 99.4 84 20 163/115 (131) 94 11/07/19 16:00 98.5 67 20 165/102 (123) 98 I&O Intake and Output 11/07/19 11/08/19 19:00 07:00 Intake Total 900 ml 250 ml Balance 900 ml 250 ml Intake Oral 900 ml 250 ml # Voids 1 Dressing: dry Wound: clean Cardiovascular: RSR Respiratory: clear Abdomen: soft, flat, non-tender, present bowel sounds Extremities: no edema, no tenderness, no cyanosis Plan Problems: (1) Appendicitis with perforation Assessment & Plan: 34M acute appendicitis with perforation and abscess afebrile, HD stable labs improved on IV abx CT with 1. Acute appendicitis with perforation and an abscess measuring 2.6 cm partially encircling the appendiceal tip. 2. Colonic diverticulosis without diverticulitis. npo iv fluids iv abx discussed with IR for potential drain placement vs aspiration. planned for tomorrow serial abdominal exams. Evaluation by IR today. No significant abscess but phlegmon. Patient still with right lower quadrant tenderness. Labs improved. Afebrile. I had long discussion with patient regarding risk medicine alternatives to interventions versus continued nonoperative management. After doing so we have decided to proceed with surgical intervention given above findings. Or today doing okay and improving will cont to monitor d/c lap appy pod #2 d/chome rx written f/u given pain control thank you will follow with recs Baronyamini,Maxwell Nov 08, 2019 12:35
--- NOTE | 2019-11-08 13:00 | NUR ---
NURSE NOTES: Patient discharged ambulatory in stable condition, mother waiting at the [facility]. ID band removed. IV line removed, no s/sx of infiltration. Dressing dry and intact, no bleeding noted. No new skin issues noted. Belongings accounted for. Discharge instructions given, verbalized understanding.
--- NOTE | 2019-11-13 09:57 | Discharge Summary ---
Discharge Summary Discharge Summary _ DATE OF ADMISSION: 11/02/2019 DATE OF DISCHARGE: 11/08/2019 DISCHARGED BY: Dr. Snyder REASON FOR ADMISSION: 34 years old male, with past medical history of migraines, presented with complaint of sudden onset of abdominal pain in the right lower quadrant. Pain rated 8 out of 10 on a scale 1-10. Upon evaluation in emergency room patient was found to have leukocytosis 15.5, no fevers. CT scan of the abdomen and pelvis showed perforated appendicitis and intra- abdominal abscess measuring 2.6 cm , partially encircling the appendiceal tip. Patient subsequently admitted for further management. CONSULTANTS: ID specialist [facility]SE: Patient admitted to medical surgical floor. Patient was kept n.p.o., on IV fluids and empiric antibiotics. Surgery consult was requested. Patient undergone another CT scan of the abdomen on 11/06 , which revealed evidence of acute appendicitis. No definite drainable abscess collection was demonstrated. No significant abscess, but phlegmon. Patient continued to have right lower quadrant tenderness. After long discussion with the patient regarding surgery , patient decided to proceed with the surgery. No definite drainable abscess collection was demonstrated. Patient subsequently undergone on 11/06 laparoscopic appendectomy Patient tolerated surgery well. Pathology of appendix revealed benign appendix with diverticula, acute inflammation, perforation, and periappendicitis. Postoperative course of recovery was uneventful. Pain management was addressed as needed. Patient started on clear liquid diet and advanced as tolerated. Patient was able to tolerate diet . Patient ambulated without difficulties. Leukocytosis resolved . Patient will need to continue antibiotics for additional 7 days to complete the course as per ID specialist recommendation. Patient clinically stabilized and was ready for discharge. FINAL DIAGNOSES: Acute perforated appendicitis Status post laparoscopic appendectomy Intra-abdominal abscess Diverticulosis of colon without diverticulitis Fatty liver Hypertension DISCHARGE MEDICATIONS: See Medication Reconciliation list. DISCHARGE INSTRUCTIONS: Patient was discharged home. Follow-up with a surgeon as instructed. I have been assigned to dictate discharge summary for this account. I was not involved in the patient's management. Clair Bledsoe NP Nov 13, 2019 09:57
--- NOTE | 2019-11-15 09:14 | NUR ---
*-* INSURANCE *-* ALL CLINICALS AND REVIEWS HAVE Been faxed: [employer] REF# [id number] #[phone] FAX#[phone] REVIEWS/CLINICALS
== END 2019-11-08 12:45 | disposition home or self-care (01) | DRG 853 ==
LOC: EMR 20:40 → EDBEDREQ 21:43 → 3E 21:52 → EDBEDREQ 22:07 → 3E 23:40
PROC: 0DTJ4ZZ Resection of Appendix, Percutaneous Endoscopic Approach (ICD-10-PCS; principal; 2019-11-06 15:00)
DX: A41.9 Sepsis, unspecified organism (principal); K35.33 Acute appendicitis with perforation, localized peritonitis, and gangrene, with abscess; K57.90 Diverticulosis of intestine, part unspecified, without perforation or abscess without bleeding; K76.0 Fatty (change of) liver, not elsewhere classified; I10 Essential (primary) hypertension
CPT/HCPCS: 36415; 74177; 80048; 80053; 81003; 83690; 85025; 85610; 85651; 85730; 86140; 86850; 86900; 86901; 94003; 94150; 96365; 96375; 96376; 99285; J2250; J2405; J2710; J7030; J8499